=== PATIENT | male | born 1950 | race Caucasian/White ===

== ENCOUNTER 2017-03-18 02:39 | Inpatient (IN) | payer MEDICARE ==
[2017-03-18] VITALS (12 sets, daily range): BP systolic 95–147; BP diastolic 64–80; PULSE 67–119; RESP 15–18; TEMP 96.1–100.6; O2SAT 93–100
[~2017-03-18] VITALS: Ht 172.7 cm; Wt 58.5 kg
[~2017-03-18 02:39] MED LIST: ALBU8I INH; ASPI81TA82 PO; ATOR20TA42 PO; CYCL-36 PO; FIORIC PO; HYDR50TA94 PO; OMEP40CA2 PO; PLAV75TA PO; QUET200 PO; ROBA750T3 PO; TOPI100 PO; TRAZ150T75 PO
[2017-03-18] MEDS ORDERED: IOHEXOL 350 MG/ML 10 ML VIAL (for RAD DIAG) IVCONTRAST ONE (02:40)
[2017-03-18] MEDS ORDERED: PANT40TA3 PO (03:07)
[2017-03-18] MEDS ORDERED: SERO25TA PO (03:07)
[2017-03-18] MEDS ORDERED: PEG-SOL4 PO (03:07)
[2017-03-18] MEDS ORDERED: ASPI81CH CHEW (03:07)
[2017-03-18] MEDS ORDERED: LOSA50TA PO (03:07)
[2017-03-18] MEDS ORDERED: SERO400T PO (03:07)
[2017-03-18] MEDS ORDERED: TOPI200T7 PO (03:07)
[2017-03-18] MEDS ORDERED: ATOR20TA15 PO (03:07)
[2017-03-18] MEDS ORDERED: CLOP75TA PO (03:07)
[2017-03-18] MEDS ORDERED: TIZA2CAP3 PO (03:07)
[2017-03-18] MEDS ORDERED: TRAZ1TAB45 PO (03:07)
--- NOTE | 2017-03-18 03:13 | PD ---
HPI Chief Complaint: Respiratory Symptoms Time Seen by Provider: 02:48 Travel History International Travel<30 days: No Contact w/Intl Traveler<30days: No Traveled to known affect area: No History of Present Illness HPI The patient is a 66-year-old male that complains of shortness of breath for 2 days. He occasionally spits up some blood. He denies any fever. He has had a cough, particularly when he lies down an acute bleed secretions. He does not smoke. 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 He is currently disabled for stress and anxiety. His last chest x- ray was in 2014. He is a [facility] patient of Dr. Alexander Turner. He does have some sharp, right lateral chest pain at the base of his chest. The patient is on clopidogrel to prevent strokes. 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 The patient states that for the last 2 days he has been stuck on the couch, too weak and in too much pain with these right lung pain to move around. He states he lives alone. He wants to be admitted. PFSH Past Medical History Hx Anticoagulant Therapy: Yes (PLAVIX AND ASA) Asthma: Yes Anxiety: Yes Depression: Yes Heart Rhythm Problems: No Cancer: No Cardiac Catheterization: No High Cholesterol: Yes Chest Pain: Yes Congestive Heart Failure: No COPD: No Diabetes: No Diminished Hearing: Yes Endocrine: No Gastrointestinal Disorders: Yes Genitourinary: No Hiatal Hernia: Yes Hypertension: Yes Immune Disorder: No Musculoskeletal: Yes (CARPAL TUNNEL) Neurologic: Yes Psychiatric: Yes Reproductive: No Respiratory: Yes (ASTHMA) Immunizations Current: Yes Myocardial Infarction: Yes Sleep Apnea: No Tetanus Vaccination: Unknown Past Surgical History Abdominal Surgery: No Cardiac Surgery: Yes (3 STENTS in heart) Coronary Artery Bypass Graft: No Hysterectomy: Yes Tonsillectomy: Yes Other Surgery: Yes (ESOPHAGEAL SX) Family History Family Myocardial Infarction: Yes (FATHER 62 , 1ST HEART ATTACK WAS AT 47) Social History Alcohol Use: No Tobacco Use: No Substance Use: No Allergies-Medications (Allergen,Severity, Reaction): Coded Allergies: penicillin G (Unverified Allergy, Severe, Rash, 03/18/17) Reported Meds & Prescriptions Reported Meds & Active Scripts Active Reported Trazodone (Trazodone HCl) 150 Mg Tablet 150 Mg PO HS Topiramate 200 Mg Tab 200 Mg PO HS Tizanidine (Tizanidine HCl) 2 Mg Cap 2 Mg PO BID Seroquel (Quetiapine Fumarate) 25 Mg Tab 25 Mg PO TID Seroquel (Quetiapine Fumarate) 400 Mg Tab 400 Mg PO HS Peg-Electrolytes 4,000 Ml Soln 4,000 Ml PO ONCE Pantoprazole (Pantoprazole Sodium) 40 Mg Tab 40 Mg PO DAILY Losartan (Losartan Potassium) 50 Mg Tab 50 Mg PO DAILY Clopidogrel (Clopidogrel Bisulfate) 75 Mg Tab 75 Mg PO DAILY Atorvastatin (Atorvastatin Calcium) 20 Mg Tab 20 Mg PO HS Aspirin 81 Mg Chew 81 Mg CHEW DAILY Review of Systems Except as stated in HPI: all other systems reviewed are Neg Physical Exam Narrative GENERAL: The patient is alert, oriented 3 in no respiratory distress. SKIN: Focused skin assessment warm/dry. HEAD: Atraumatic. Normocephalic. EYES: Pupils equal and round. No scleral icterus. No injection or drainage. ENT: No nasal bleeding or discharge. Mucous membranes pink and moist. NECK: Trachea midline. No JVD. CARDIOVASCULAR: Regular rate and rhythm. No murmur appreciated. RESPIRATORY: No accessory muscle use. Right basilar rhonchi heard. Breath sounds equal bilaterally. GASTROINTESTINAL: Abdomen soft, non-tender, nondistended. Hepatic and splenic margins not palpable. MUSCULOSKELETAL: No obvious deformities. No clubbing. No cyanosis. No edema. NEUROLOGICAL: Awake and alert. No obvious cranial nerve deficits. Motor grossly within normal limits. Normal speech. PSYCHIATRIC: Appropriate mood and affect; insight and judgment normal. Data Data Last Documented VS Vital Signs Date Time Temp Pulse Resp B/P (MAP) Pulse Ox O2 Delivery O2 Flow Rate FiO2 03/18/17 03:49 98.9 03/18/17 03:48 109 18 95 Room Air Orders Orders Electrocardiogram (03/18/17 03:01) Complete Blood Count With Diff (03/18/17 03:01) Comprehensive Metabolic Panel (03/18/17 03:01) Urinalysis - C+S If Indicated (03/18/17 03:01) Blood Culture (03/18/17 03:01) Chest, Pa & Lat (03/18/17 03:01) Sodium Chloride 0.9% Flush (Ns Flush) (03/18/17 03:15) Troponin I (03/18/17 03:10) Ct Thorax/ Chest W Iv Contrast (03/18/17 ) Iohexol 350 Inj (Omnipaque 350 Inj) (03/18/17 02:40) Hydromorphone Pf Inj (Dilaudid Pf Inj) (03/18/17 05:45) Ondansetron Inj (Zofran Inj) (03/18/17 05:45) Labs Laboratory Tests Test 03/18/17 03:10 White Blood Count 10.8 TH/MM3 Red Blood Count 3.77 MIL/MM3 Hemoglobin 11.2 GM/DL Hematocrit 33.9 % Mean Corpuscular Volume 89.9 FL Mean Corpuscular Hemoglobin 29.7 PG Mean Corpuscular Hemoglobin Concent 33.0 % Red Cell Distribution Width 13.3 % Platelet Count 412 TH/MM3 Mean Platelet Volume 7.8 FL Neutrophils (%) (Auto) 82.6 % Lymphocytes (%) (Auto) 7.3 % Monocytes (%) (Auto) 8.7 % Eosinophils (%) (Auto) 1.1 % Basophils (%) (Auto) 0.3 % Neutrophils # (Auto) 9.0 TH/MM3 Lymphocytes # (Auto) 0.8 TH/MM3 Monocytes # (Auto) 0.9 TH/MM3 Eosinophils # (Auto) 0.1 TH/MM3 Basophils # (Auto) 0.0 TH/MM3 CBC Comment DIFF FINAL Differential Comment Blood Urea Nitrogen 10 MG/DL Creatinine 1.10 MG/DL Random Glucose 133 MG/DL Total Protein 7.8 GM/DL Albumin 2.6 GM/DL Calcium Level 9.2 MG/DL Alkaline Phosphatase 129 U/L Aspartate Amino Transf (AST/SGOT) 48 U/L Alanine Aminotransferase (ALT/SGPT) 44 U/L Total Bilirubin 0.6 MG/DL Sodium Level 136 MEQ/L Potassium Level 3.3 MEQ/L Chloride Level 105 MEQ/L Carbon Dioxide Level 17.5 MEQ/L Anion Gap 14 MEQ/L Estimat Glomerular Filtration Rate 67 ML/MIN Troponin I LESS THAN 0.02 NG/ML MDM Medical Decision Making Medical Screen Exam Complete: Yes Emergency Medical Condition: Yes Medical Record Reviewed: Yes Interpretation(s) The chest x-ray shows multiple right sided nodular densities concerning for metastatic deposits. It also shows consolidation in the right middle lobe. This may be due to some central adenopathy and regional airway compression. The left lung is clear. The CBC shows a mild anemia with a hemoglobin of 11.2 and hematocrit of 33.9. 83% neutrophils are present. The complete metabolic profile shows a potassium of 3.3, bicarbonate of 17.5, GFR of 67 with glucose 133 and AST of 48 with alkaline phosphatase 129 and albumen 2.6. The troponin I is normal. Differential Diagnosis Pneumonia, bronchitis, pulmonary embolusunlikely, lung tumor Narrative Course The patient has multiple lung masses with hemoptysis. The patient is on both aspirin and Plavix and may start bleeding from his lungs and any time. The patient also lives alone and has severe pain and weakness. He states he cannot get around. His oximetry is only 93% and he does have a tachycardia of 117. This would be a risky patient to send home. I discussed the patient with Dr. Baldwin and she agreed to admit the patient here at [facility]. It is likely that he will be transferred to [facility] in the next few days because of his condition. Dr. Neal Goode will likely reevaluate the patient in the next few hours after the CT scan of the thorax with contrast results are back. Physician Communication Physician Communication I discussed the patient with Dr. Neal Goode. The patient will be admitted to her here at [facility]. Admitting Information Admitting Physician Requests: Primitivo Bob MD Mar 18, 2017 03:12
[2017-03-18] MEDS ORDERED: SODIUM CHLORIDE 0.9% FLUSH 10 ML FLUSH IVF PRN (03:15)
[2017-03-18 03:18] LABS: BASOPHIL % 0.3 % (0.0-2.0); EOSINOPHIL # 0.1 TH/MM3 (0-0.4); EOSINOPHIL % 1.1 % (0.0-4.0); HEMATOCRIT 33.9 % (39.0-51.0); LYMPH % 7.3 % (9.0-44.0); LYMPHOCYTE # 0.8 TH/MM3 (1.0-4.8); MEAN CELL VOLUME 89.9 FL (80.0-100.0); MEAN CORPUSCULAR HEMOGLOBIN 29.7 PG (27.0-34.0); MONO % 8.7 % (0.0-8.0); NEUT % 82.6 % (16.0-70.0); PLATELET COUNT 412 TH/MM3 (150-450); RED BLOOD COUNT 3.77 MIL/MM3 (4.50-5.90); RED CELL DISTRIBUTION WIDTH 13.3 % (11.6-17.2); WHITE BLOOD COUNT 10.8 TH/MM3 (4.0-11.0)
[2017-03-18 03:19] LABS: HEMO FLAGS DIFF FINAL
[2017-03-18 03:25] LABS: CHLORIDE 105 MEQ/L (98-107); POTASSIUM 3.3 MEQ/L (3.5-5.1); SODIUM (NA) 136 MEQ/L (136-145)
[2017-03-18 03:28] LABS: ANION GAP 14 MEQ/L (5-15); BICARBONATE 17.5 MEQ/L (21.0-32.0)
[2017-03-18 03:29] LABS: BLOOD UREA NITROGEN 10 MG/DL (7-18)
[2017-03-18 03:31] LABS: ALT (GPT) 44 U/L (12-78); AST (GOT) 48 U/L (15-37)
[2017-03-18 03:32] LABS: GLOMERULAR FILTRATION RATE 67 ML/MIN (>89)
[2017-03-18 03:33] LABS: TOTAL BILIRUBIN ADULT 0.6 MG/DL (0.2-1.0)
[2017-03-18 03:34] LABS: ALKALINE PHOSPHATASE 129 U/L (45-117)
--- NOTE | 2017-03-18 04:19 | RADRPT ---
EXAM DATE/TIME: 03/18/2017 03:23 [facility] COMPARISON: CHEST SINGLE AP, May 12, 2015, 15:38. INDICATIONS : Shortness of breath. MEDICAL HISTORY : Hypertension. SURGICAL HISTORY : Coronary artery stent. Esophagus surgery ENCOUNTER: Initial ACUITY: 2 days PAIN SCORE: 4/10 LOCATION: Bilateral chest FINDINGS: PA and lateral views of the chest demonstrate multiple nodular densities in the right hemithorax, the largest in the right base measuring 6 cm in diameter. Consolidative infiltrate in the medial segment of the right middle lobe. Left lung is clear. Heart size is normal. Osseous structures are intact. CONCLUSION: 1. Multiple right-sided nodular density concerning for metastatic deposits. 2. Consolidation in the right middle. This may be due to some central adenopathy and regional airway compression. 3. Left lung is clear Sky Gomes MD on March 18, 2017 at 4:15 Board Certified Radiologist. This report was verified electronically.
[2017-03-18] MEDS ORDERED: HYDROmorphone HCL PF 1 MG/ML VIAL IVP ONE (05:45)
[2017-03-18] MEDS ORDERED: ONDANSETRON HCL 4 MG/2 ML VIAL IV ONE (05:45)
--- NOTE | 2017-03-18 05:47 | RADRPT ---
EXAM DATE/TIME: 03/18/2017 05:18 [facility] COMPARISON: No previous studies available for comparison. INDICATIONS : Abnormal CXR. Hemoptysis. Shortness of breath. IV CONTRAST: 71 cc Omnipaque 350 (iohexol) IV RADIATION DOSE: 6.65 CTDIvol (mGy) MEDICAL HISTORY : Hernia, hiatal. Asthma SURGICAL HISTORY : Tonsillectomy. Coronary artery stent.esophageal surgery ENCOUNTER: Initial ACUITY: 2 days PAIN SCALE: 0/10 LOCATION: Right chest TECHNIQUE: Volumetric scanning of the chest was performed. Using automated exposure control and adjustment of t he mA and/or kV according to patient size, radiation dose was kept as low as reasonably achievable to obtain optimal diagnostic quality images. DICOM format image data is available electronically for review and comparison. Follow-up recommendations for detected pulmonary nodules are based at a minimum on nodule size and pa tient risk factors according to Fleischner Society Guidelines. FINDINGS: LUNGS: Multiple right-sided mass lesions the largest in the right base measuring approximately 5.8 cm in jm meter. Some of these lesions do show central cavitation. Minimal atelectasis or scarring the left sandy g base. More extensive atelectatic changes medially in the right middle lobe. PLEURA: There is no pleural thickening or pleural effusion. MEDIASTINUM: Borderline prominent subcarinal lymph nodes. Right hilar lida prominence as well. AXILLAE: Within normal limits. No lymphadenopathy. SKELETAL: Within normal limits for patient age. MISCELLANEOUS: The visualized upper abdominal organs demonstrate no acute abnormality. CONCLUSION: 1. Multiple cavitary mass lesions in the right hemithorax. Both neoplastic and infectious etiology sh ould be considered. 2. Right hilar and subcarinal prominent lymph nodes. 3. Atelectatic changes in the right middle Sky Gomes MD on March 18, 2017 at 5:41 Board Certified Radiologist. This report was verified electronically.
[2017-03-18] MEDS ORDERED: ACETAMINOPHEN 325 MG TAB PO PRN (08:30)
[2017-03-18] MEDS ORDERED: NALOXONE HCL 0.4 MG/ML AMP IV PUSH PRN (08:30)
[2017-03-18] MEDS ORDERED: ONDANSETRON HCL 4 MG/2 ML VIAL IVP PRN (08:30)
[2017-03-18] MEDS ORDERED: SODIUM CHLOR 0.9% 1000 ML INJ 1,000 ML IV SCH (08:30)
[2017-03-18 12:12] LABS: BLOOD, URINE NEG (NEG); GLUCOSE,URINE NEG (NEG); KETONE, URINE NEG (NEG); NITRITE,URINE NEG (NEG)
[2017-03-18 12:21] LABS: METHOD OF COLLECTION CLEAN CATCH; URINE COLOR YELLOW (YELLW/STRAW)
[2017-03-18 12:22] LABS: COMMENT (UR) CULT NOT INDICATED; CULTURE IF INDICATED CULT NOT INDICATED; WBC, URINE 0-2 /hpf (0-5)
--- NOTE | 2017-03-18 12:46 | EKG ---
Date Performed: 03/18/2017 Time Performed: 02:53:44 PTAGE: 66 years EKG: SINUS TACHYCARDIA NONSPECIFIC ST & T-WAVE ABNORMALITY ABNORMAL RHYTHM ECG NO PREVIOUS TRACING DOCTOR: Domenic Reed Interpretating Date/Time 03/18/2017 12:46:06
[2017-03-18] MEDS: NS + KCL 20 MEQ INJ 1,000 ML IV SCH (14:15)
[2017-03-18] MEDS ORDERED: Vancomycin Consult Pharmacy 1 EA OTHER SCH (14:45)
[2017-03-18] MEDS ORDERED: VANCOMYCIN INJ 1,000 MG in SODIUM CHLOR 0.9% 250 ML INJ 250 ML IV SCH (14:45)
[2017-03-18] MEDS: RESP: ALBUTEROL 2.5 MG/3 ML NEB (SCH) NEB ×2 (15:20→21:04)
[2017-03-18] MEDS ORDERED: PILL SPLITTER OTHER PRN (15:30)
[2017-03-18] MEDS ORDERED: LEVOFLOXACIN 750 MG PREMIX INJ 150 ML IV SCH (16:00)
[2017-03-18] MEDS ORDERED: LIDOCAINE VISCOUS 2% SOLN 15 ML UDC SWISH-SPIT PRN (16:30)
[2017-03-18] MEDS ORDERED: RESP: ALBUTEROL 2.5 MG/3 ML NEB (PRN) NEB (16:30)
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
[2017-03-18] MEDS: CLINDAMYCIN INJ 600 MG in SODIUM CHLORIDE 0.9% INJ 100 ML IV SCH (17:54)
[2017-03-18] MEDS ORDERED: QUEtiapine FUMARATE 25 MG TAB PO PRN (18:00)
[2017-03-18] MEDS ORDERED: QUEtiapine FUMARATE 25 MG TAB PO SCH (18:00)
[2017-03-18 18:22] LABS: AUTOMATED NEUTROPHIL # 11.5 TH/MM3 (1.8-7.7); BASOPHIL % 0.2 % (0.0-2.0); EOSINOPHIL # 0.1 TH/MM3 (0-0.4); EOSINOPHIL % 0.5 % (0.0-4.0); HEMATOCRIT 31.5 % (39.0-51.0); LYMPH % 1.7 % (9.0-44.0); LYMPHOCYTE # 0.2 TH/MM3 (1.0-4.8); MEAN CELL VOLUME 90.5 FL (80.0-100.0); MEAN CORPUSCULAR HEMOGLOBIN 29.7 PG (27.0-34.0); MEAN CORPUSCULAR HGB CONC 32.8 % (32.0-36.0); MONO % 7.9 % (0.0-8.0); NEUT % 89.7 % (16.0-70.0); PLATELET COUNT 375 TH/MM3 (150-450); RED BLOOD COUNT 3.49 MIL/MM3 (4.50-5.90); RED CELL DISTRIBUTION WIDTH 13.2 % (11.6-17.2); WHITE BLOOD COUNT 12.8 TH/MM3 (4.0-11.0)
[2017-03-18 18:25] LABS: HEMO FLAGS DIFF FINAL
[2017-03-18 18:30] LABS: POTASSIUM 3.3 MEQ/L (3.5-5.1)
[2017-03-18 18:33] LABS: BICARBONATE 18.1 MEQ/L (21.0-32.0)
[2017-03-18 18:35] LABS: APTT (PATIENT) 29.5 SEC (24.3-30.1); PROTHROMBIN TIME - PATIENT 11.5 SEC (9.8-11.6)
[2017-03-18] MEDS: QUEtiapine FUMARATE 100 MG TAB PO SCH (20:35)
[2017-03-18] MEDS: traZODone HCL 50 MG TAB PO SCH (20:35)
[2017-03-18] MEDS: TOPIRAMATE 100 MG TAB PO SCH (20:35)
[2017-03-18] MEDS: ATORVASTATIN 20 MG TAB PO SCH (20:35)
--- NOTE | 2017-03-18 21:46 | EKG ---
Date Performed: 03/18/2017 Time Performed: 17:55:42 PTAGE: 66 years EKG: Sinus rhythm NONSPECIFIC T-WAVE ABNORMALITY BORDERLINE ECG PREVIOUS TRACING : 03/18/2017 02.53 No significant change from previous tracing noted. DOCTOR: Domenic Reed Interpretating Date/Time 03/18/2017 21:44:38
[2017-03-19] MEDS: NS + KCL 20 MEQ INJ 1,000 ML IV SCH ×3 (00:16→17:15)
[2017-03-19] MEDS: CLINDAMYCIN INJ 600 MG in SODIUM CHLORIDE 0.9% INJ 100 ML IV SCH ×2 (00:16→05:48)
[2017-03-19 00:40] VITALS: BP 110/70; PULSE 83; RESP 18; TEMP 97; O2SAT 96
[2017-03-19] MEDS: RESP: ALBUTEROL 2.5 MG/3 ML NEB (SCH) NEB ×4 (03:31→22:19)
[2017-03-19] MEDS ORDERED: ACETAMINOPHEN/HYDROcodone 325 MG/5 MG TAB PO ONE (04:30)
[2017-03-19 06:59] LABS: AUTOMATED NEUTROPHIL # 10.8 TH/MM3 (1.8-7.7); BASOPHIL % 0.2 % (0.0-2.0); EOSINOPHIL # 0.1 TH/MM3 (0-0.4); EOSINOPHIL % 0.7 % (0.0-4.0); HEMATOCRIT 29.4 % (39.0-51.0); LYMPH % 2.8 % (9.0-44.0); LYMPHOCYTE # 0.3 TH/MM3 (1.0-4.8); MEAN CELL VOLUME 90.4 FL (80.0-100.0); MEAN CORPUSCULAR HEMOGLOBIN 29.7 PG (27.0-34.0); MEAN CORPUSCULAR HGB CONC 32.8 % (32.0-36.0); MONO % 10.5 % (0.0-8.0); NEUT % 85.8 % (16.0-70.0); PLATELET COUNT 352 TH/MM3 (150-450); RED BLOOD COUNT 3.26 MIL/MM3 (4.50-5.90); RED CELL DISTRIBUTION WIDTH 13.2 % (11.6-17.2); WHITE BLOOD COUNT 12.5 TH/MM3 (4.0-11.0)
[2017-03-19 07:06] LABS: HEMO FLAGS DIFF FINAL
[2017-03-19 07:07] LABS: CHLORIDE 110 MEQ/L (98-107); POTASSIUM 3.7 MEQ/L (3.5-5.1); SODIUM (NA) 140 MEQ/L (136-145)
[2017-03-19 07:11] LABS: ANION GAP 10 MEQ/L (5-15); BICARBONATE 19.6 MEQ/L (21.0-32.0)
[2017-03-19 07:14] LABS: ALT (GPT) 36 U/L (12-78); BLOOD UREA NITROGEN 10 MG/DL (7-18)
[2017-03-19 07:15] LABS: AST (GOT) 38 U/L (15-37); GLOMERULAR FILTRATION RATE 67 ML/MIN (>89)
[2017-03-19 07:16] LABS: TOTAL BILIRUBIN ADULT 0.5 MG/DL (0.2-1.0)
[2017-03-19 07:17] LABS: ALKALINE PHOSPHATASE 121 U/L (45-117)
[2017-03-19 08:00] VITALS: BP 109/72; PULSE 89; RESP 20; TEMP 98.7; O2SAT 96
[2017-03-19] MEDS: PANTOPRAZOLE SOD 40 MG DELAYED RELEASE TAB PO SCH (08:57)
[2017-03-19 09:12] VITALS: O2SAT 94
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
[2017-03-19] MEDS ORDERED: Vancomycin Consult Pharmacy 1 EA OTHER SCH (12:00)
--- NOTE | 2017-03-19 12:12 | HHI.PR ---
Subjective Remarks some hemoptysis last night, some gassiness in lower abdomen, no bm since admission mouth very dry, sore Objective Vitals Vital Signs Date Time Temp Pulse Resp B/P (MAP) Pulse Ox O2 Delivery O2 Flow Rate FiO2 03/19/17 10:36 Nasal Cannula 2.00 03/19/17 09:12 94 Nasal Cannula 2.00 03/19/17 08:00 98.7 89 20 109/72 (84) 96 03/19/17 04:24 03/19/17 00:40 97.0 83 18 110/70 (83) 96 03/18/17 21:22 96.9 86 16 95/64 (74) 95 03/18/17 21:06 96 Nasal Cannula 2.00 03/18/17 20:00 95 Nasal Cannula 2.00 03/18/17 17:17 100.6 103 18 147/79 (101) 95 03/18/17 13:00 96.1 67 15 139/80 (99) 100 Result Diagram: 03/19/17 0537 03/19/17 0537 Imaging Last Impressions Chest X-Ray 03/18/17 0301 Signed Impressions: Service Date/Time: Saturday, March 18, 2017 03:23 - CONCLUSION: 1. Multiple right-sided nodular density concerning for metastatic deposits. 2. Consolidation in the right middle. This may be due to some central adenopathy and regional airway compression. 3. Left lung is clear Sky Gomes MD Chest CT 03/18/17 0000 Signed Impressions: Service Date/Time: Saturday, March 18, 2017 05:18 - CONCLUSION: 1. Multiple cavitary mass lesions in the right hemithorax. Both neoplastic and infectious etiology should be considered. 2. Right hilar and subcarinal prominent lymph nodes. 3. Atelectatic changes in the right middle Sky Gomes MD Objective Remarks Lying in bed on oxygen mouth very dry, no lesions or ulcer fine crackles rt base rrr no murmur +bs nontender A/P Problem List: (1) Cavitary lesion of lung ICD Codes: J98.4 - Other disorders of lung Status: Acute Plan: Seen by ID, antibiotics adjusted, await cultures, agree with echo (2) Anxiety and depression ICD Codes: F41.8 - Anxiety and depression Status: Chronic Plan: cont medications,stable (3) Hyperlipidemia ICD Codes: E78.5 - Hyperlipidemia Status: Chronic Plan: cont atorvastatin (4) Migraine ICD Codes: G43.909 - Migraine, unspecified, not intractable, without status migrainosus Status: Chronic Plan: stable cont topamax (5) CAD (coronary artery disease) ICD Codes: I25.10 - CAD (coronary artery disease) Status: Chronic Plan: confirmed in [facility] EHR he was on plavix and aspirin, on hold due to hemoptysis Assessment and Plan Antibiotica adjusted, for echo and bronchoscopy today Problem Qualifiers (1) Migraine: (2) CAD (coronary artery disease): Leslie Baldwin MD Mar 19, 2017 11:57
[2017-03-19] MEDS: diphenhydrAMINE HCL 50 MG/ML VIAL IV PUSH SCH ×3 (13:56→22:53)
[2017-03-19] MEDS: cefTRIAXone INJ 2,000 MG in SODIUM CHLORIDE 0.9% INJ 100 ML IV SCH (13:57)
[2017-03-19] MEDS: VANCOMYCIN INJ 1,100 MG in SODIUM CHLOR 0.9% 250 ML INJ 250 ML IV SCH (14:54)
[2017-03-19] MEDS: metroNIDAZOLE 500 MG TAB PO SCH ×2 (17:14→22:51)
--- NOTE | 2017-03-19 19:58 | HHI.PR ---
Subjective Remarks YOWM with Bipolar disorder, multiple cavitary lesions denies sob No fever Feels weak Tr to [facility] [place] main for bronch Objective Vital Signs Vital Signs Date Time Temp Pulse Resp B/P (MAP) Pulse Ox O2 Delivery O2 Flow Rate FiO2 03/19/17 19:16 Nasal Cannula 03/19/17 10:36 Nasal Cannula 2.00 03/19/17 09:12 94 Nasal Cannula 2.00 03/19/17 08:00 98.7 89 20 109/72 (84) 96 03/19/17 04:24 03/19/17 00:40 97.0 83 18 110/70 (83) 96 03/18/17 21:22 96.9 86 16 95/64 (74) 95 03/18/17 21:06 96 Nasal Cannula 2.00 03/18/17 20:00 95 Nasal Cannula 2.00 I/O 03/18/17 03/18/17 03/18/17 03/19/17 03/19/17 03/19/17 06:59 14:59 22:59 06:59 14:59 22:59 Intake Total 627 ml 1100 ml Output Total 800 ml Balance 627 ml 300 ml Intake IV Total 627 ml 1100 ml Output Urine Total 800 ml # Voids 2 # Bowel Movements 0 Result Diagram: 03/19/17 0537 03/19/17 0537 Objective Remarks GENERAL: MBMN WM, weak, NAD SKIN: Warm and dry. HEAD: Normocephalic. EYES: No scleral icterus. No injection or drainage. NECK: Supple, trachea midline. No JVD or lymphadenopathy. CARDIOVASCULAR: Regular rate and rhythm without murmurs, gallops, or rubs. RESPIRATORY: Breath sounds equal bilaterally. No accessory muscle use. GASTROINTESTINAL: Abdomen soft, non-tender, nondistended. MUSCULOSKELETAL: No cyanosis, or edema. BACK: Nontender without obvious deformity. No CVA tenderness. A/P Assessment and Plan Multiple cavitary lesions right lung Bipolar disorder Weight loss PLAN Cont Abx per ID Sputum for AFB Bronch tommorrow DW Pt Bunny Rehman MD Mar 19, 2017 19:58
[2017-03-19 20:00] VITALS: BP 160/77; PULSE 99; RESP 20; TEMP 97.6; O2SAT 97
[2017-03-19 20:38] LABS: AUTOMATED NEUTROPHIL # 14.1 TH/MM3 (1.8-7.7); BASOPHIL % 0.3 % (0.0-2.0); EOSINOPHIL # 0.1 TH/MM3 (0-0.4); EOSINOPHIL % 0.5 % (0.0-4.0); HEMO FLAGS DIFF FINAL; LYMPH % 2.9 % (9.0-44.0); LYMPHOCYTE # 0.5 TH/MM3 (1.0-4.8); MEAN CELL VOLUME 92.8 FL (80.0-100.0); MEAN CORPUSCULAR HEMOGLOBIN 29.9 PG (27.0-34.0); MEAN CORPUSCULAR HGB CONC 32.2 % (32.0-36.0); MONO % 9.2 % (0.0-8.0); NEUT % 87.1 % (16.0-70.0); PLATELET COUNT 396 TH/MM3 (150-450); RED BLOOD COUNT 3.88 MIL/MM3 (4.50-5.90); RED CELL DISTRIBUTION WIDTH 14.1 % (11.6-17.2); WHITE BLOOD COUNT 16.1 TH/MM3 (4.0-11.0)
[2017-03-19 20:48] LABS: INTERNATIONAL NORMALIZED RATIO 1.1 RATIO; PROTHROMBIN TIME - PATIENT 12.2 SEC (9.8-11.6)
[2017-03-19 20:56] LABS: BICARBONATE 19.1 MEQ/L (21.0-32.0); POTASSIUM 3.6 MEQ/L (3.5-5.1)
[2017-03-19 22:20] VITALS: O2SAT 96
[2017-03-19] MEDS: ATORVASTATIN 20 MG TAB PO SCH (22:52)
[2017-03-19] MEDS: QUEtiapine FUMARATE 100 MG TAB PO SCH (22:52)
[2017-03-19] MEDS: traZODone HCL 50 MG TAB PO SCH (22:52)
[2017-03-19] MEDS: TOPIRAMATE 100 MG TAB PO SCH (22:52)
[2017-03-20] VITALS: BP 92/56; PULSE 93; RESP 18; TEMP 99.1; O2SAT 96
[2017-03-20] MEDS: RESP: ALBUTEROL 2.5 MG/3 ML NEB (SCH) NEB ×4 (03:43→22:00)
[2017-03-20 04:00] VITALS: BP 109/63; PULSE 98; RESP 20; TEMP 98.3; O2SAT 95
[2017-03-20] MEDS: metroNIDAZOLE 500 MG TAB PO SCH ×3 (06:09→22:37)
[2017-03-20] MEDS: diphenhydrAMINE HCL 50 MG/ML VIAL IV PUSH SCH ×3 (06:09→18:00)
[2017-03-20 08:00] VITALS: BP 109/56; PULSE 88; RESP 17; TEMP 98.3; O2SAT 96
[2017-03-20] MEDS: PANTOPRAZOLE SOD 40 MG DELAYED RELEASE TAB PO SCH (09:00)
[2017-03-20 09:46] LABS: BASOPHIL % 0.4 % (0.0-2.0); EOSINOPHIL # 0.1 TH/MM3 (0-0.4); HEMATOCRIT 28.9 % (39.0-51.0); HEMO FLAGS DIFF FINAL; LYMPH % 2.4 % (9.0-44.0); LYMPHOCYTE # 0.3 TH/MM3 (1.0-4.8); MEAN CELL VOLUME 91.3 FL (80.0-100.0); MEAN CORPUSCULAR HEMOGLOBIN 30.4 PG (27.0-34.0); MEAN CORPUSCULAR HGB CONC 33.3 % (32.0-36.0); MONO % 10.8 % (0.0-8.0); NEUT % 85.4 % (16.0-70.0); PLATELET COUNT 304 TH/MM3 (150-450); RED BLOOD COUNT 3.16 MIL/MM3 (4.50-5.90); RED CELL DISTRIBUTION WIDTH 14.2 % (11.6-17.2); WHITE BLOOD COUNT 11.7 TH/MM3 (4.0-11.0)
--- NOTE | 2017-03-20 09:51 | HHI.PR ---
Subjective Remarks still sob/coughed up some blood tinged sputum. Objective Vitals heart reg lung good air entry abd s/nt ext no edema. no splinter hemorrhage Vital Signs Date Time Temp Pulse Resp B/P (MAP) Pulse Ox O2 Delivery O2 Flow Rate FiO2 03/20/17 08:00 98.3 88 17 109/56 (73) 96 03/20/17 04:00 98.3 98 20 109/63 (78) 95 03/20/17 00:00 99.1 93 18 92/56 (68) 96 03/19/17 22:20 96 Nasal Cannula 2.50 03/19/17 20:19 Nasal Cannula 2.00 03/19/17 20:00 97.6 99 20 160/77 (104) 97 03/19/17 19:16 Nasal Cannula 03/19/17 10:36 Nasal Cannula 2.00 Result Diagram: 03/19/17201903/19/172019 Imaging Last Impressions Chest X-Ray 03/18/17 0301 Signed Impressions: Service Date/Time: Saturday, March 18, 2017 03:23 - CONCLUSION: 1. Multiple right-sided nodular density concerning for metastatic deposits. 2. Consolidation in the right middle. This may be due to some central adenopathy and regional airway compression. 3. Left lung is clear Sky Gomes MD Chest CT 03/18/17 0000 Signed Impressions: Service Date/Time: Saturday, March 18, 2017 05:18 - CONCLUSION: 1. Multiple cavitary mass lesions in the right hemithorax. Both neoplastic and infectious etiology should be considered. 2. Right hilar and subcarinal prominent lymph nodes. 3. Atelectatic changes in the right middle Sky Gomes MD A/P Problem List: (1) Cavitary lesion of lung ICD Codes: J98.4 - Other disorders of lung Status: Acute Plan: Pt with multiple cavitary mass lesions of the right lung concern for infectious etiology. r/o malignancy recent dental work. r/o endocarditis and septic emboli no clear aspiration event per history. TB and fungal etiologies being considered. No known immunosuppression echo pending f/u blood cx sent blood tinged sputum for afb/gs cx/fungal bronchoscopy today pt isolated. cont abx per ID (2) Anxiety and depression ICD Codes: F41.8 - Anxiety and depression Status: Chronic Plan: cont medications,stable (3) Hyperlipidemia ICD Codes: E78.5 - Hyperlipidemia Status: Chronic Plan: cont atorvastatin (4) Migraine ICD Codes: G43.909 - Migraine, unspecified, not intractable, without status migrainosus Status: Chronic Plan: stable cont topamax (5) CAD (coronary artery disease) ICD Codes: I25.10 - CAD (coronary artery disease) Status: Chronic Plan: confirmed in [facility] EHR he was on plavix and aspirin, on hold due to hemoptysis Problem Qualifiers (1) Migraine: (2) CAD (coronary artery disease): Jeffrey Clayton MD Mar 20, 2017 09:51
[2017-03-20 10:16] LABS: ALKALINE PHOSPHATASE 117 U/L (45-117); ALT (GPT) 35 U/L (12-78); ANION GAP 11 MEQ/L (5-15); AST (GOT) 37 U/L (15-37); BICARBONATE 19.3 MEQ/L (21.0-32.0); BLOOD UREA NITROGEN 10 MG/DL (7-18); CHLORIDE 108 MEQ/L (98-107); GLOMERULAR FILTRATION RATE 75 ML/MIN (>89); POTASSIUM 3.6 MEQ/L (3.5-5.1); SODIUM (NA) 138 MEQ/L (136-145); TOTAL BILIRUBIN ADULT 0.5 MG/DL (0.2-1.0)
[2017-03-20] MEDS: VANCOMYCIN INJ 1,100 MG in SODIUM CHLOR 0.9% 250 ML INJ 250 ML IV SCH (10:53)
[2017-03-20 12:00] VITALS: BP 116/69; PULSE 89; RESP 17; TEMP 98.5; O2SAT 98
[2017-03-20] MEDS ORDERED: LIDOCAINE HCL 1% PF 5 ML AMPULE OTHER ONE (12:00)
[2017-03-20] MEDS ORDERED: PROPOFOL 200 MG/20 ML AMP IV ONE (12:00)
[2017-03-20] MEDS: cefTRIAXone INJ 2,000 MG in SODIUM CHLORIDE 0.9% INJ 100 ML IV SCH (13:48)
--- NOTE | 2017-03-20 14:31 | PD.CONS ---
HPI History of Present Illness This is a 66 year old who is currently hospitalized for evaluation and treatment of multiple cavitary mass lesions of the right lung with concern for infectious vs. malignant etiology. Yesterday, he was transferred to [facility] from the [facility] for a bronchoscopy by pulmonary. GI has been consulted for dysphagia. Apparently, he underwent major hiatal hernia repair as a child and has since required several EGD with dilatations. He was last seen by our office in 2016 and evaluated with EGD/Colonoscopy (09/03/15)----> reflux esophagitis in the distal esophagus, biopsy was performed, wide mouthed diverticulum in the distal esophagus, retroflexed views revealed a medium hiatal hernia. Pedunculated polyp was found in the sigmoid colon; polypectomy was performed using snare cautery, retroflexed views revealed Grade II hemorrhoids, rectal exam revealed medium external hemorrhoids. Stomach antrum bx- fragment of squamous mucosa with basal cell hyperplasia, elongation of papillae and intra epithelial lymphocytes and rare eosinophils (~2/HPF), no gastric mucosa seen (comments- may represent reflux esophagitis if sample is from the esophagus), distal esophagus with squamous epithelium with mild chronic esophagitis, no columnar cells/glandular mucosa seen, sigmoid colon polyp tubular adenoma. GI was consulted for dysphagia. The initially denied this and insisted that he does not have any swallowing issues. However, after speaking to him more, he states that he has had issues since he had his surgery in 196. He states that since his surgery, the food gets caught in his lower esophagus. He has learned to control this by chewing his food well, taking small bites, taking frequent sips of water, eating upright, and cutting off food after 6pm. He states by following these measures, he is able to eat and does okay. He insists that this is not a problem, but the way he is. He reports that he has had multiple endoscopies and dilatations in the past, but never has any improvement with this. He also has a history of GERD, but states this is well controlled with medication. He denies n/v. He sometimes coughs after eating, but again insists as long as he eats slow with small bites and frequent water, he does okay. Denies abdominal pain. He states that he was due for an endoscopy in August, but had dental issues and was not able to call for an appointment. (Lili Casas) PFSH Past Medical History Bipolar disorder Schizoaffective d/o Asthma Bloating Hx HH CAD Carpal tunnel syndrome Chronic back pain GERD Esophageal diverticulum Tubular adenoma of colon HTN Hyperlipidemia Neuropathy Panic disorder Psoriasis Hx thrombocytopenia Past Surgical History Cardiac catheterization Dental surgery Esophagogastric fundoplasty judy fundoplication EGD/Colonoscopy (Lili Casas) Coded Allergies: penicillin G (Unverified Allergy, Severe, Rash, 03/20/17) Tolerates Cephalosporins Medications Allergies Coded Allergies Type Severity Reaction Last Updated Verified penicillin G Allergy Severe Rash 03/18/17 No Active Scripts Medications Dose Route/Sig Max Daily Dose Days Date Category Trazodone (Trazodone HCl) 150 Mg Tablet 150 Mg PO HS 03/18/17 Reported Topiramate 200 Mg Tab 200 Mg PO HS 03/18/17 Reported Seroquel (Quetiapine Fumarate) 25 Mg Tab 25 Mg PO TID 03/18/17 Reported Pantoprazole (Pantoprazole Sodium) 40 Mg Tab 40 Mg PO DAILY 03/18/17 Reported Losartan (Losartan Potassium) 50 Mg Tab 50 Mg PO DAILY 03/18/17 Reported Clopidogrel (Clopidogrel Bisulfate) 75 Mg Tab 75 Mg PO DAILY 03/18/17 Reported Atorvastatin (Atorvastatin Calcium) 20 Mg Tab 20 Mg PO HS 03/18/17 Reported Aspirin 81 Mg Chew 81 Mg CHEW DAILY 03/18/17 Reported Family History Father had colon cancer. Social History No tobacco use No ETOH abuse (Lili Casas) Review of Systems Constitutional: COMPLAINS OF: Fatigue, DENIES: Fever, Chills Respiratory: COMPLAINS OF: Cough, Shortness of breath Cardiovascular: DENIES: Chest pain Gastrointestinal: COMPLAINS OF: Difficulty Swallowing, Heartburn, DENIES: Abdominal pain, Black stools, Bloody stools, Constipation, Diarrhea, Nausea, Vomiting, Odynophagia Integumentary: DENIES: Abnormal pigmentation Hematologic/lymphatic: DENIES: Bruising Neurologic: DENIES: Headache Psychiatric: DENIES: Confusion (Lili Casas) GI Exam Vitals I&O Vital Signs Date Time Temp Pulse Resp B/P (MAP) Pulse Ox O2 Delivery O2 Flow Rate FiO2 03/20/17 08:00 98.3 88 17 109/56 (73) 96 03/20/17 04:00 98.3 98 20 109/63 (78) 95 03/20/17 00:00 99.1 93 18 92/56 (68) 96 03/19/17 22:20 96 Nasal Cannula 2.50 03/19/17 20:19 Nasal Cannula 2.00 03/19/17 20:00 97.6 99 20 160/77 (104) 97 03/19/17 19:16 Nasal Cannula I/O 03/19/17 03/19/17 03/19/17 03/20/17 03/20/17 03/20/17 07:00 15:00 23:00 07:00 15:00 23:00 Intake Total 1100 ml Output Total 800 ml Balance 300 ml Intake IV Total 1100 ml Output Urine Total 800 ml # Voids 2 # Bowel Movements 0 Imaging Last Impressions Chest X-Ray 03/18/17 0301 Signed Impressions: Service Date/Time: Saturday, March 18, 2017 03:23 - CONCLUSION: 1. Multiple right-sided nodular density concerning for metastatic deposits. 2. Consolidation in the right middle. This may be due to some central adenopathy and regional airway compression. 3. Left lung is clear Sky Gomes MD Chest CT 03/18/17 0000 Signed Impressions: Service Date/Time: Saturday, March 18, 2017 05:18 - CONCLUSION: 1. Multiple cavitary mass lesions in the right hemithorax. Both neoplastic and infectious etiology should be considered. 2. Right hilar and subcarinal prominent lymph nodes. 3. Atelectatic changes in the right middle Sky Gomes MD Laboratory Test 03/19/17 20:20 03/20/17 06:59 White Blood Count 16.1 TH/MM3 11.7 TH/MM3 Red Blood Count 3.88 MIL/MM3 3.16 MIL/MM3 Hemoglobin 11.6 GM/DL 9.6 GM/DL Hematocrit 36.0 % 28.9 % Mean Corpuscular Volume 92.8 FL 91.3 FL Mean Corpuscular Hemoglobin 29.9 PG 30.4 PG Mean Corpuscular Hemoglobin Concent 32.2 % 33.3 % Red Cell Distribution Width 14.1 % 14.2 % Platelet Count 396 TH/MM3 304 TH/MM3 Mean Platelet Volume 8.4 FL 8.9 FL Neutrophils (%) (Auto) 87.1 % 85.4 % Lymphocytes (%) (Auto) 2.9 % 2.4 % Monocytes (%) (Auto) 9.2 % 10.8 % Eosinophils (%) (Auto) 0.5 % 1.0 % Basophils (%) (Auto) 0.3 % 0.4 % Neutrophils # (Auto) 14.1 TH/MM3 10.0 TH/MM3 Lymphocytes # (Auto) 0.5 TH/MM3 0.3 TH/MM3 Monocytes # (Auto) 1.5 TH/MM3 1.3 TH/MM3 Eosinophils # (Auto) 0.1 TH/MM3 0.1 TH/MM3 Basophils # (Auto) 0.0 TH/MM3 0.0 TH/MM3 CBC Comment DIFF FINAL DIFF FINAL Differential Comment Prothrombin Time 12.2 SEC Prothromb Time International Ratio 1.1 RATIO Activated Partial Thromboplast Time 35.0 SEC Blood Urea Nitrogen 8 MG/DL 10 MG/DL Creatinine 1.21 MG/DL 1.00 MG/DL Random Glucose 103 MG/DL 96 MG/DL Calcium Level 9.6 MG/DL 8.7 MG/DL Sodium Level 137 MEQ/L 138 MEQ/L Potassium Level 3.6 MEQ/L 3.6 MEQ/L Chloride Level 108 MEQ/L 108 MEQ/L Carbon Dioxide Level 19.1 MEQ/L 19.3 MEQ/L Anion Gap 10 MEQ/L 11 MEQ/L Estimat Glomerular Filtration Rate 60 ML/MIN 75 ML/MIN Total Protein 6.6 GM/DL Albumin 2.1 GM/DL Alkaline Phosphatase 117 U/L Aspartate Amino Transf (AST/SGOT) 37 U/L Alanine Aminotransferase (ALT/SGPT) 35 U/L Total Bilirubin 0.5 MG/DL Date/Time Source Procedure Growth Status 03/18/17 15:01 Blood Peripheral Aerobic Blood Culture - Preliminary NO GROWTH IN 2 DAYS Resulted 03/18/17 15:01 Blood Peripheral Anaerobic Blood Culture - Preliminary NO GROWTH IN 2 DAYS Resulted 03/20/17 06:20 Sputum Expectorated Sputum Fungal Smear Pending Received 03/20/17 06:20 Sputum Expectorated Sputum Fungal Culture Pending Received Physical Examination HEENT: Normocephalic; atraumatic; no jaundice. CHEST: Resp even/unlabored. Diminished bases CARDIAC: RRR ABDOMEN: Soft, nondistended, nontender; no hepatosplenomegaly; bowel sounds are present in all four quadrants. EXTREMITIES: No clubbing, cyanosis, or edema. SKIN: Normal; no rash; no jaundice. COUNTY MANAGER: No focal deficits; alert and oriented times three. (Lili Casas) Assessment and Plan Plan ASSESSMENT: - Dysphagia, Hx esophageal diverticulum. Pt reports that he has had issues swallowing since 1961 when he had HH repair. Since that time, he has had multiple EGD with dilatations, but has not had any improvement. He has learned to control this by chewing his food well, taking small bites, taking frequent sips of water, eating upright, and cutting off food after 6pm. He states by following these measures, he is able to eat and does okay. EGD/Colonoscopy (09/03/15)--- -> reflux esophagitis in the distal esophagus, biopsy was performed, wide mouthed diverticulum in the distal esophagus, retroflexed views revealed a medium hiatal hernia. Pedunculated polyp was found in the sigmoid colon; polypectomy was performed using snare cautery, retroflexed views revealed Grade II hemorrhoids, rectal exam revealed medium external hemorrhoids. Stomach antrum bx- fragment of squamous mucosa with basal cell hyperplasia, elongation of papillae and intra epithelial lymphocytes and rare eosinophils (~2/HPF), no gastric mucosa seen (comments- may represent reflux esophagitis if sample is from the esophagus), distal esophagus with squamous epithelium with mild chronic esophagitis, no columnar cells/glandular mucosa seen, sigmoid colon polyp tubular adenoma. ? Dysmotility ? Aspiration from esophageal diverticulum. Cont. PPI. Get Barium Swallow. - GERD, PPI - Multiple cavitary lesions right lung. Sputum cx pending. Going for bronchoscopy today. Flagyl, Ceftriaxone, Vanco, - Leukocytosis, elevated ESR > 140.0. WBC 11.7. Sputum cx pending. Bcx no growth 2 days. - CAD, Bipolar d/o, schizoaffective d/o, HTN, CKD, chronic low back pain per attending. PLAN: - NPO for bronchoscopy - Barium swallow in am - Cont. PPI - Abx per ID - Further recommendations to follow based on results of above - PT seen and examined by Dr. Garza and myself and this note is written on his behalf (Lili Casas) Physician Comments Patient seen and examined Agree with above Continue with current supportive care Monitor labs Await bronchoscopy and barium swallow Considering EGD based on barium swallow result (Bobo Garza MD) Lili Casas Mar 20, 2017 14:31 Bobo Garza MD Mar 20, 2017 21:32
[2017-03-20 16:00] VITALS: BP 125/67; PULSE 88; RESP 17; TEMP 98.2; O2SAT 95
--- NOTE | 2017-03-20 16:01 | ECHRPT ---
Indication: endocarditis CONCLUSIONS The left ventricular systolic function is low normal with an estimated ejection fraction in the rang e of 50- 55%. Normal left ventricular size. Mild mitral valve regurgitation. There is mild tricuspid valve regurgitation. The estimated pulmonary arterial pressure is 39.8 mmHg. No vegatation or masses identified BP: / HR: Rhythm: MEASUREMENTS (Male / Female) Normal Values Technical Quality:Good 2D ECHO LV Diastolic Diameter PLAX 3.7 cm 4.2 - 5.9 / 3.9 - 5.3 cm LV Systolic Diameter PLAX 2.8 cm IVS Diastolic Thickness 1.3 cm 0.6 - 1.0 / 0.6 - 0.9 cm LVPW Diastolic Thickness 0.8 cm 0.6 - 1.0 / 0.6 - 0.9 cm LV Relative Wall Thickness 0.6 RV Internal Dim ED PLAX 2.3 cm M-MODE Aortic Root Diameter MM 3.4 cm LA Systolic Diameter MM 2.4 cm LA Ao Ratio MM 0.7 AV Cusp Separation MM 1.7 cm DOPPLER Mitral E Point Velocity 77.0 cm/s Mitral A Point Velocity 79.0 cm/s Mitral E to A Ratio 1.0 LV E' Lateral Velocity 14.8 cm/s Mitral E to LV E' Lateral Ratio 5.2 LV E' Septal Velocity 9.8 cm/s Mitral E to LV E' Septal Ratio 7.9 TR Peak Velocity 273.0 cm/s TR Peak Gradient 29.8 mmHg Right Atrial Pressure 10.0 mmHg Pulmonary Artery Systolic Pressu 39.8 mmHg Right Ventricular Systolic Press 39.8 mmHg FINDINGS LEFT VENTRICLE The left ventricular systolic function is low normal with an estimated ejection fraction in the rang e of 50- 55%. Normal left ventricular size. RIGHT VENTRICLE Normal right ventricular size and systolic function. LEFT ATRIUM The left atrial size is normal. RIGHT ATRIUM The right atrial size is normal. ATRIAL SEPTUM Normal atrial septal thickness without atrial level shunting by limited color doppler interrogation. AORTA The aortic root and proximal ascending aorta are normal in size on limited imaging. MITRAL VALVE Structurally normal mitral valve. Mild mitral valve regurgitation. AORTIC VALVE Trileaflet aortic valve. No aortic valve stenosis or regurgitation. TRICUSPID VALVE Structurally normal tricuspid valve. There is mild tricuspid valve regurgitation. The estimated pulmonary arterial pressure is 39.8 mmHg. PULMONARY VALVE No pulmonary valve regurgitation or stenosis. VESSELS The inferior vena cava is normal in size. PERICARDIUM No pericardial effusion. Marcos Nguyen MD (Electronically Signed) Final Date:20 March 2017 16:00
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
--- NOTE | 2017-03-20 19:43 | HHI.PR ---
Subjective Remarks YOWM with Bipolar disorder, multiple cavitary lesions denies sob No fever Had bronch done No mass or endobronchial lesion Objective Vital Signs Vital Signs Date Time Temp Pulse Resp B/P (MAP) Pulse Ox O2 Delivery O2 Flow Rate FiO2 03/20/17 16:00 98.2 88 17 125/67 (86) 95 03/20/17 12:00 98.5 89 17 116/69 (85) 98 03/20/17 08:00 98.3 88 17 109/56 (73) 96 03/20/17 04:00 98.3 98 20 109/63 (78) 95 03/20/17 00:00 99.1 93 18 92/56 (68) 96 03/19/17 22:20 96 Nasal Cannula 2.50 03/19/17 20:19 Nasal Cannula 2.00 03/19/17 20:00 97.6 99 20 160/77 (104) 97 I/O 03/19/17 03/19/17 03/19/17 03/20/17 03/20/17 03/20/17 07:00 15:00 23:00 07:00 15:00 23:00 Intake Total 1100 ml 261 ml 600 ml Output Total 800 ml 5 ml Balance 300 ml 261 ml 595 ml Intake IV Total 1100 ml 261 ml 100 ml Other 500 ml Output Urine Total 800 ml Estimated Blood Loss 5 ml # Voids 2 # Bowel Movements 0 Result Diagram: 03/20/17 0659 03/20/17 0659 Objective Remarks GENERAL: MBMN WM, weak, NAD SKIN: Warm and dry. HEAD: Normocephalic. EYES: No scleral icterus. No injection or drainage. NECK: Supple, trachea midline. No JVD or lymphadenopathy. CARDIOVASCULAR: Regular rate and rhythm without murmurs, gallops, or rubs. RESPIRATORY: Breath sounds equal bilaterally. No accessory muscle use. GASTROINTESTINAL: Abdomen soft, non-tender, nondistended. MUSCULOSKELETAL: No cyanosis, or edema. BACK: Nontender without obvious deformity. No CVA tenderness. A/P Assessment and Plan Multiple cavitary lesions right lung Bipolar disorder Weight loss PLAN Cont Abx per ID Sputum for AFB Check Bronch results Bunny Rehman MD Mar 20, 2017 19:43
[2017-03-20] MEDS ORDERED: RESP: ALBUTEROL 1.25 MG/3 ML NEB (PRN) ONE (19:46)
[2017-03-20] MEDS ORDERED: DO NOT ADM ANY ANTICOAGULANT DRUGS PRN (20:45)
--- NOTE | 2017-03-20 21:14 | RADRPT ---
EXAM DATE/TIME: 03/20/2017 20:25 [facility] COMPARISON: CT THORAX W CONTRAST, March 18, 2017, 5:18. CHEST SINGLE AP, May 12, 2015, 15:38. INDICATIONS : Evaluate for pneumothorax. Post bronch. MEDICAL HISTORY : Hernia, hiatal. Asthma SURGICAL HISTORY : Tonsillectomy. Coronary artery stent.esophageal surgery ENCOUNTER: Initial ACUITY: 1 day PAIN SCORE: 0/10 LOCATION: Bilateral chest FINDINGS: There is no evidence of pneumothorax. Multiple right-sided pulmonary masses are noted. Focal alveolar consolidation involving the right lung base is noted consistent with atelectasis and/or infiltrate. The heart is normal. CONCLUSION: 1. No evidence of pneumothorax. 2. Right basilar alveolar consolidation consistent with atelectasis and/or infiltrate. 3. Multiple right-sided pulmonary masses. Checo Acharya MD on March 20, 2017 at 21:10 Board Certified Radiologist. This report was verified electronically.
[2017-03-20 21:40] VITALS: BP 114/73; PULSE 88; RESP 20; TEMP 97.9; O2SAT 95
[2017-03-20] MEDS: TOPIRAMATE 100 MG TAB PO SCH (22:36)
[2017-03-20] MEDS: ATORVASTATIN 20 MG TAB PO SCH (22:36)
[2017-03-20] MEDS: traZODone HCL 50 MG TAB PO SCH (22:37)
[2017-03-20] MEDS: QUEtiapine FUMARATE 100 MG TAB PO SCH (22:37)
[2017-03-21] VITALS (8 sets, daily range): BP systolic 89–147; BP diastolic 59–82; PULSE 64–89; RESP 16–19; TEMP 97.1–98.7; O2SAT 94–97
[2017-03-21] MEDS: NS + KCL 20 MEQ INJ 1,000 ML IV SCH (00:37)
[2017-03-21] MEDS: diphenhydrAMINE HCL 50 MG/ML VIAL IV PUSH SCH ×2 (02:32→05:50)
[2017-03-21] MEDS: VANCOMYCIN INJ 1,100 MG in SODIUM CHLOR 0.9% 250 ML INJ 250 ML IV SCH (02:33)
[2017-03-21] MEDS: metroNIDAZOLE 500 MG TAB PO SCH ×2 (05:50→13:32)
[2017-03-21] MEDS: RESP: ALBUTEROL 2.5 MG/3 ML NEB (SCH) NEB ×3 (08:24→21:32)
[2017-03-21] MEDS: PANTOPRAZOLE SOD 40 MG DELAYED RELEASE TAB PO SCH (08:59)
[2017-03-21 09:45] LABS: M. TUBERCULOSIS PCR NOT DETECTED (NOT DETECT)
--- NOTE | 2017-03-21 10:33 | HHI.PR ---
Subjective Remarks doing ok. no new complaints. Objective Vitals heent neg heart reg lung diminished bases abd s/nt ext no edema Vital Signs Date Time Temp Pulse Resp B/P (MAP) Pulse Ox O2 Delivery O2 Flow Rate FiO2 03/21/17 09:02 Room Air 03/21/17 08:50 98.7 78 16 105/66 (79) 96 03/21/17 08:28 97 Nasal Cannula 2.50 03/21/17 04:30 97.9 80 19 110/75 (87) 95 03/21/17 00:00 97.1 80 19 115/78 (90) 96 03/20/17 23:00 Nasal Cannula 2.00 03/20/17 21:42 Nasal Cannula 2.50 03/20/17 21:40 97.9 88 20 114/73 (87) 95 03/20/17 16:00 98.2 88 17 125/67 (86) 95 03/20/17 12:00 98.5 89 17 116/69 (85) 98 Result Diagram: 03/20/17 0659 03/20/17 0659 Imaging Last Impressions Chest X-Ray 03/18/17 0301 Signed Impressions: Service Date/Time: Saturday, March 18, 2017 03:23 - CONCLUSION: 1. Multiple right-sided nodular density concerning for metastatic deposits. 2. Consolidation in the right middle. This may be due to some central adenopathy and regional airway compression. 3. Left lung is clear Sky Gomes MD Chest CT 03/18/17 0000 Signed Impressions: Service Date/Time: Saturday, March 18, 2017 05:18 - CONCLUSION: 1. Multiple cavitary mass lesions in the right hemithorax. Both neoplastic and infectious etiology should be considered. 2. Right hilar and subcarinal prominent lymph nodes. 3. Atelectatic changes in the right middle Sky Gomes MD A/P Problem List: (1) Cavitary lesion of lung ICD Codes: J98.4 - Other disorders of lung Status: Acute Plan: Pt with multiple cavitary mass lesions of the right lung concern for infectious etiology. r/o malignancy recent dental work. r/o endocarditis and septic emboli no clear aspiration event per history. TB and fungal etiologies being considered. No known immunosuppression echo: 03/20. no vegetations hep c ab positive bronchoscopy 03/20 . no endobronchial lesions f/u blood cx..ngtd f/u sputum and bronch specimens for afb/gs cx/fungal pt isolated. cont abx per ID (2) Anxiety and depression ICD Codes: F41.8 - Anxiety and depression Status: Chronic Plan: cont medications,stable (3) Hyperlipidemia ICD Codes: E78.5 - Hyperlipidemia Status: Chronic Plan: cont atorvastatin (4) Migraine ICD Codes: G43.909 - Migraine, unspecified, not intractable, without status migrainosus Status: Chronic Plan: stable cont topamax (5) CAD (coronary artery disease) ICD Codes: I25.10 - CAD (coronary artery disease) Status: Chronic Plan: confirmed in [facility] EHR he was on plavix and aspirin, on hold due to hemoptysis (6) Hepatitis C antibody positive in blood ICD Codes: R76.8 - Other specified abnormal immunological findings in serum Status: Acute Problem Qualifiers (1) Migraine: (2) CAD (coronary artery disease): Jeffrey Clayton MD Mar 21, 2017 10:32
--- NOTE | 2017-03-21 10:55 | RADRPT ---
EXAM DATE/TIME: 03/21/2017 10:28 [facility] COMPARISON: CHEST SINGLE AP, March 20, 2017, 20:25. INDICATIONS : Dysphagia and dysmotility. Trouble swallowing solids and uses liquids to get the solid food down. FLUORO TIME: 1.6 minutes IMAGE COUNT: 8 CONTRAST: 1. Liquid E-Z Paque Barium Sulfate (60% w/v, 41% w.w) MEDICAL HISTORY : Hernia, hiatal. Asthma SURGICAL HISTORY : Tonsillectomy. Coronary artery stent.esophageal surgery ENCOUNTER: Subsequent ACUITY: 3 days PAIN SCORE: 0/10 LOCATION: Bilateral Esophagus FINDINGS: Examination is severely limited by patient's weakened clinical status. Upright films were obtained. There is moderate esophageal dysmotility in the thoracic esophagus. Small hiatal hernia is evident. There is no obstruction. The cervical esophagus is not evaluated. CONCLUSION: Limited swallow to thoracic esophagus shows esophageal dysmotility consistent with mild presbyesophag us without obstruction to liquids. Cervical esophagus is not evaluated. Hima Sorenson MD FACR on March 21, 2017 at 10:49 Board Certified Radiologist. This report was verified electronically.
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
[2017-03-21] MEDS ORDERED: diphenhydrAMINE HCL 25 MG CAP PO PRN (14:15)
--- NOTE | 2017-03-21 14:20 | HHI.GIFU ---
Subjective Remarks Pt resting in bed. No complaints. (Rox Salazar) Objective Vitals I&O Vital Signs Date Time Temp Pulse Resp B/P (MAP) Pulse Ox O2 Delivery O2 Flow Rate FiO2 03/21/17 12:47 98.7 89 16 147/82 (103) 94 03/21/17 09:02 Room Air 03/21/17 08:50 98.7 78 16 105/66 (79) 96 03/21/17 08:28 97 Nasal Cannula 2.50 03/21/17 04:30 97.9 80 19 110/75 (87) 95 03/21/17 00:00 97.1 80 19 115/78 (90) 96 03/20/17 23:00 Nasal Cannula 2.00 03/20/17 21:42 Nasal Cannula 2.50 03/20/17 21:40 97.9 88 20 114/73 (87) 95 03/20/17 16:00 98.2 88 17 125/67 (86) 95 I/O 03/20/17 03/20/17 03/20/17 03/21/17 03/21/17 03/21/17 07:00 15:00 23:00 07:00 15:00 23:00 Intake Total 261 ml 600 ml 450 ml Output Total 5 ml Balance 261 ml 595 ml 450 ml Intake Oral 0 ml 450 ml IV Total 261 ml 100 ml Other 500 ml Estimated Blood Loss 5 ml # Voids 0 2 # Bowel Movements 0 0 Laboratory Laboratory Tests Test 03/21/17 04:10 M. tuberculosis Complex DNA (PCR) NOT DETECTED Date/Time Source Procedure Growth Status 03/18/17 15:01 Blood Peripheral Aerobic Blood Culture - Preliminary NO GROWTH IN 3 DAYS Resulted 03/18/17 15:01 Blood Peripheral Anaerobic Blood Culture - Preliminary NO GROWTH IN 3 DAYS Resulted 03/20/17 18:37 Bronchial Washings Right Lower Lobe Fungal Smear - Final NO FUNGAL ELEMENTS SEEN. Resulted 03/20/17 18:37 Bronchial Washings Right Lower Lobe Fungal Culture Pending Resulted Physical Exam HEENT: PERRL; atraumatic; no jaundice. CHEST: CTA, diminished CARDIAC: RRR ABDOMEN: Soft, nondistended, nontender; no hepatosplenomegaly; bowel sounds are present in all four quadrants. EXTREMITIES: No clubbing, cyanosis, or edema. SKIN: Normal; no rash; no jaundice. 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 (Rox Salazar) Assessment and Plan Plan ASSESSMENT: - Dysphagia, Hx esophageal diverticulum. Pt reports that he has had issues swallowing since 1961 when he had HH repair. Since that time, he has had multiple EGD with dilatations, but has not had any improvement. He has learned to control this by chewing his food well, taking small bites, taking frequent sips of water, eating upright, and cutting off food after 6pm. He states by following these measures, he is able to eat and does okay. EGD/Colonoscopy (09/03/15)--- -> reflux esophagitis in the distal esophagus, biopsy was performed, wide mouthed diverticulum in the distal esophagus, retroflexed views revealed a medium hiatal hernia. Pedunculated polyp was found in the sigmoid colon; polypectomy was performed using snare cautery, retroflexed views revealed Grade II hemorrhoids, rectal exam revealed medium external hemorrhoids. Stomach antrum bx- fragment of squamous mucosa with basal cell hyperplasia, elongation of papillae and intra epithelial lymphocytes and rare eosinophils (~2/HPF), no gastric mucosa seen (comments- may represent reflux esophagitis if sample is from the esophagus), distal esophagus with squamous epithelium with mild chronic esophagitis, no columnar cells/glandular mucosa seen, sigmoid colon polyp tubular adenoma. ? Aspiration from esophageal diverticulum. Cont. PPI. Ba swallow --> esophageal dysmotility, presbyopia - GERD, PPI - Multiple cavitary lesions right lung. Sputum cx pending. s/p bronch Flagyl , Ceftriaxone, Vanco, - Leukocytosis, elevated ESR > 140.0. WBC 11.7. Sputum cx pending. Bcx no growth 2 days. - CAD, Bipolar d/o, schizoaffective d/o, HTN, CKD, chronic low back pain per attending. PLAN: - Cont. PPI - Abx per ID - await bronch cultures and cytology - supportive care - PT seen and examined by Dr. Garza and myself and this note is written on his behalf (Rox Salazar) Physician Comments Patient seen and examined Agree with above Continue with current supportive care Monitor labs Barium swallow basically revealing presbyesophagus Not much can be done at this point except for precautionary measures Not much to add from a GI perspective we will sign off (Bobo Garza MD) Rox Salazar Mar 21, 2017 14:20 Bobo Garza MD Mar 21, 2017 20:40
[2017-03-21] MEDS: cefTRIAXone INJ 2,000 MG in SODIUM CHLORIDE 0.9% INJ 100 ML IV SCH (15:34)
--- NOTE | 2017-03-21 19:02 | HHI.PR ---
Subjective Remarks YOWM with Bipolar disorder, multiple cavitary lesions denies sob No fever Had bronch done No mass or endobronchial lesion MTB PCR negative Objective Vital Signs Vital Signs Date Time Temp Pulse Resp B/P (MAP) Pulse Ox O2 Delivery O2 Flow Rate FiO2 03/21/17 17:19 98.6 84 18 89/59 (69) 97 03/21/17 16:04 96 Nasal Cannula 2.50 03/21/17 12:47 98.7 89 16 147/82 (103) 94 03/21/17 09:02 Room Air 03/21/17 08:50 98.7 78 16 105/66 (79) 96 03/21/17 08:28 97 Nasal Cannula 2.50 03/21/17 04:30 97.9 80 19 110/75 (87) 95 03/21/17 00:00 97.1 80 19 115/78 (90) 96 03/20/17 23:00 Nasal Cannula 2.00 03/20/17 21:42 Nasal Cannula 2.50 03/20/17 21:40 97.9 88 20 114/73 (87) 95 I/O 03/20/17 03/20/17 03/20/17 03/21/17 03/21/17 03/21/17 07:00 15:00 23:00 07:00 15:00 23:00 Intake Total 261 ml 600 ml 450 ml 480 ml Output Total 5 ml Balance 261 ml 595 ml 450 ml 480 ml Intake Oral 0 ml 450 ml 480 ml IV Total 261 ml 100 ml Other 500 ml Estimated Blood Loss 5 ml # Voids 0 2 4 # Bowel Movements 0 0 1 Result Diagram: 03/20/1759 03/20/17 0659 Objective Remarks GENERAL: MBMN WM, weak, NAD SKIN: Warm and dry. HEAD: Normocephalic. EYES: No scleral icterus. No injection or drainage. NECK: Supple, trachea midline. No JVD or lymphadenopathy. CARDIOVASCULAR: Regular rate and rhythm without murmurs, gallops, or rubs. RESPIRATORY: Breath sounds equal bilaterally. No accessory muscle use. GASTROINTESTINAL: Abdomen soft, non-tender, nondistended. MUSCULOSKELETAL: No cyanosis, or edema. BACK: Nontender without obvious deformity. No CVA tenderness. A/P Assessment and Plan Multiple cavitary lesions right lung Bipolar disorder Weight loss PLAN Cont Abx per ID Sputum for AFB Check Bronch results Bunny Rehman MD Mar 21, 2017 19:02
[2017-03-21] MEDS ORDERED: VANCOMYCIN TROUGH ONE (19:45)
[2017-03-22] VITALS (8 sets, daily range): BP systolic 113–138; BP diastolic 69–77; PULSE 72–89; RESP 16–19; TEMP 97.2–98.5; O2SAT 95–97
[2017-03-22] MEDS: VANCOMYCIN INJ 1,100 MG in SODIUM CHLOR 0.9% 250 ML INJ 250 ML IV SCH (00:16)
[2017-03-22] MEDS: TOPIRAMATE 100 MG TAB PO SCH ×2 (00:17→21:06)
[2017-03-22] MEDS: ATORVASTATIN 20 MG TAB PO SCH ×2 (00:17→21:05)
[2017-03-22] MEDS: metroNIDAZOLE 500 MG TAB PO SCH ×4 (00:17→21:05)
[2017-03-22] MEDS: traZODone HCL 50 MG TAB PO SCH ×2 (00:17→21:05)
[2017-03-22] MEDS: QUEtiapine FUMARATE 100 MG TAB PO SCH ×2 (00:18→21:05)
[2017-03-22] MEDS: NS + KCL 20 MEQ INJ 1,000 ML IV SCH (00:18)
[2017-03-22] MEDS: RESP: ALBUTEROL 2.5 MG/3 ML NEB (SCH) NEB ×3 (03:29→15:49)
--- NOTE | 2017-03-22 08:21 | HHI.PR ---
Subjective Remarks feels overall better. still weak. some right side cp when breathing or palpating Objective Vitals heart reg lung diminished right lung ext no edema Vital Signs Date Time Temp Pulse Resp B/P (MAP) Pulse Ox O2 Delivery O2 Flow Rate FiO2 03/22/17 04:00 98.0 78 19 117/72 (87) 95 03/22/17 00:25 98.5 79 16 133/77 (95) 97 03/21/17 21:30 Room Air 03/21/17 20:30 97.4 64 18 115/80 (92) 97 03/21/17 17:19 98.6 84 18 89/59 (69) 97 03/21/17 16:04 96 Nasal Cannula 2.50 03/21/17 12:47 98.7 89 16 147/82 (103) 94 03/21/17 09:02 Room Air 03/21/17 08:50 98.7 78 16 105/66 (79) 96 03/21/17 08:28 97 Nasal Cannula 2.50 Result Diagram: 03/20/17 0659 03/20/17 0659 Imaging Last Impressions Chest X-Ray 03/18/17 0301 Signed Impressions: Service Date/Time: Saturday, March 18, 2017 03:23 - CONCLUSION: 1. Multiple right-sided nodular density concerning for metastatic deposits. 2. Consolidation in the right middle. This may be due to some central adenopathy and regional airway compression. 3. Left lung is clear Sky Gomes MD Chest CT 03/18/17 0000 Signed Impressions: Service Date/Time: Saturday, March 18, 2017 05:18 - CONCLUSION: 1. Multiple cavitary mass lesions in the right hemithorax. Both neoplastic and infectious etiology should be considered. 2. Right hilar and subcarinal prominent lymph nodes. 3. Atelectatic changes in the right middle Sky Gomes MD A/P Problem List: (1) Cavitary lesion of lung ICD Codes: J98.4 - Other disorders of lung Status: Acute Plan: 1)multiple cavitary mass lesions of the right lung concern for infectious etiology. r/o malignancy recent dental work. r/o endocarditis and septic emboli no clear aspiration event per history. echo: 03/20. no vegetations hep c ab positive bronchoscopy 03/20 . no endobronchial lesions MTB pcr negative admission blood cx ngtd sputum and bronchoscopy cx's ngtd. f/u path. isolation removed oob/PT eval IS today abx per ID (2) Anxiety and depression ICD Codes: F41.8 - Anxiety and depression Status: Chronic Plan: cont medications,stable (3) Hyperlipidemia ICD Codes: E78.5 - Hyperlipidemia Status: Chronic Plan: cont atorvastatin (4) Migraine ICD Codes: G43.909 - Migraine, unspecified, not intractable, without status migrainosus Status: Chronic Plan: stable cont topamax (5) CAD (coronary artery disease) ICD Codes: I25.10 - CAD (coronary artery disease) Status: Chronic Plan: confirmed in [facility] EHR he was on plavix and aspirin, on hold due to hemoptysis (6) Hepatitis C antibody positive in blood ICD Codes: R76.8 - Other specified abnormal immunological findings in serum Status: Acute Problem Qualifiers (1) Migraine: (2) CAD (coronary artery disease): Jeffrey Clayton MD Mar 22, 2017 08:21
[2017-03-22] MEDS: PANTOPRAZOLE SOD 40 MG DELAYED RELEASE TAB PO SCH (09:26)
[2017-03-22] MEDS: cefTRIAXone INJ 2,000 MG in SODIUM CHLORIDE 0.9% INJ 100 ML IV SCH (11:18)
[2017-03-22] MEDS: VANCOMYCIN INJ 1,500 MG in SODIUM CHLORID 0.9% 500 ML INJ 500 ML IV SCH (12:54)
--- NOTE | 2017-03-22 17:10 | HHI.PR ---
Subjective Remarks YOWM with Bipolar disorder, multiple cavitary lesions denies sob No fever Had bronch done No mass or endobronchial lesion MTB PCR negative Bronchial cultures negative so far Objective Vital Signs Vital Signs Date Time Temp Pulse Resp B/P (MAP) Pulse Ox O2 Delivery O2 Flow Rate FiO2 03/22/17 15:49 97 Nasal Cannula 2.50 03/22/17 15:00 97.7 72 18 119/72 (88) 97 03/22/17 11:32 98.4 89 18 124/69 (87) 96 03/22/17 11:23 97 Nasal Cannula 2.50 03/22/17 08:45 98.5 85 18 113/69 (84) 95 03/22/17 08:45 95 Room Air 03/22/17 04:00 98.0 78 19 117/72 (87) 95 03/22/17 00:25 98.5 79 16 133/77 (95) 97 03/21/17 21:30 Room Air 03/21/17 20:30 97.4 64 18 115/80 (92) 97 03/21/17 17:19 98.6 84 18 89/59 (69) 97 I/O 03/21/17 03/21/17 03/21/17 03/22/17 03/22/17 03/22/17 07:00 15:00 23:00 07:00 15:00 23:00 Intake Total 450 ml 1280 ml 661 ml 1100 ml 500 ml Output Total 400 ml Balance 450 ml 1280 ml 261 ml 1100 ml 500 ml Intake Oral 450 ml 1280 ml 400 ml IV Total 261 ml 1100 ml 500 ml Output Urine Total 400 ml # Voids 2 4 2 # Bowel Movements 0 1 0 1 Result Diagram: 03/20/17 0659 03/22/17 0929 Objective Remarks GENERAL: MBMN WM, weak, NAD SKIN: Warm and dry. HEAD: Normocephalic. EYES: No scleral icterus. No injection or drainage. NECK: Supple, trachea midline. No JVD or lymphadenopathy. CARDIOVASCULAR: Regular rate and rhythm without murmurs, gallops, or rubs. RESPIRATORY: Breath sounds equal bilaterally. No accessory muscle use. GASTROINTESTINAL: Abdomen soft, non-tender, nondistended. MUSCULOSKELETAL: No cyanosis, or edema. BACK: Nontender without obvious deformity. No CVA tenderness. A/P Assessment and Plan Multiple cavitary lesions right lung Bipolar disorder Weight loss PLAN Cont Abx per ID Sputum for AFB Check Bronch results Bx, cytology pending Bunny Rehman MD Mar 22, 2017 17:10
[2017-03-23] VITALS (7 sets, daily range): BP systolic 103–147; BP diastolic 57–81; PULSE 73–88; RESP 16–20; TEMP 97.2–98.7; O2SAT 94–97
[2017-03-23 04:59] LABS: BICARBONATE 22.7 MEQ/L (21.0-32.0); POTASSIUM 3.4 MEQ/L (3.5-5.1)
[2017-03-23] MEDS: metroNIDAZOLE 500 MG TAB PO SCH ×3 (05:51→20:53)
[2017-03-23] MEDS ORDERED: PHARMACY ORDERED LAB ONE (07:45)
[2017-03-23] MEDS: PANTOPRAZOLE SOD 40 MG DELAYED RELEASE TAB PO SCH (08:15)
[2017-03-23] MEDS: VANCOMYCIN INJ 1,500 MG in SODIUM CHLORID 0.9% 500 ML INJ 500 ML IV SCH (08:15)
--- NOTE | 2017-03-23 08:50 | HHI.PR ---
Subjective Remarks overall feels better. ambulated in hallway yesterday. Objective Vitals heart reg lung course bs abd s/nt ext no edema Vital Signs Date Time Temp Pulse Resp B/P (MAP) Pulse Ox O2 Delivery O2 Flow Rate FiO2 03/23/17 07:50 98.0 76 18 103/57 (72) 94 03/23/17 05:50 98.7 82 16 112/57 (75) 95 03/23/17 01:38 98.0 79 16 110/58 (75) 96 03/22/17 21:12 97.2 82 18 138/75 (96) 97 03/22/17 20:55 Nasal Cannula 2.00 03/22/17 15:49 97 Nasal Cannula 2.50 03/22/17 15:00 97.7 72 18 119/72 (88) 97 03/22/17 11:32 98.4 89 18 124/69 (87) 96 03/22/17 11:23 97 Nasal Cannula 2.50 Result Diagram: 03/20/17 0659 03/23/17 0418 Imaging Last Impressions Chest X-Ray 03/18/17 0301 Signed Impressions: Service Date/Time: Saturday, March 18, 2017 03:23 - CONCLUSION: 1. Multiple right-sided nodular density concerning for metastatic deposits. 2. Consolidation in the right middle. This may be due to some central adenopathy and regional airway compression. 3. Left lung is clear Sky Gomes MD Chest CT 03/18/17 0000 Signed Impressions: Service Date/Time: Saturday, March 18, 2017 05:18 - CONCLUSION: 1. Multiple cavitary mass lesions in the right hemithorax. Both neoplastic and infectious etiology should be considered. 2. Right hilar and subcarinal prominent lymph nodes. 3. Atelectatic changes in the right middle Sky Gomes MD A/P Problem List: (1) Cavitary lesion of lung ICD Codes: J98.4 - Other disorders of lung Status: Acute Plan: 1)multiple cavitary mass lesions of the right lung concern for infectious etiology. r/o malignancy recent dental work. r/o endocarditis and septic emboli no clear aspiration event per history. echo: 03/20. no vegetations hep c ab positive bronchoscopy 03/20 . no endobronchial lesions MTB pcr negative admission blood cx ngtd sputum and bronchoscopy cx's ngtd. f/u path. isolation removed oob/PT eval IS today abx per ID add ensure to meals. ADDENDUM: - Spoke with ID. Dr. Ascencio, today about antibiotics at discharge. She felt that if the patient is swallowing without difficulty that the pt would be a good candidate for oral antibiotics for 2-4 weeks. I called the patient nurse to confirm that the pt is indeed swallowing without difficulty and the pts nurse confirms this. The patient has had long standing issues with dysphagia and barium swallow indicated presbyesophagus and GI had been following and felt that based on the BS findings, there was not much that could be done except for precautionary measures regarding the dysphagia but the pt is currently swallowing without difficulty. - ID has recommended oral Levaquin and Flagyl x 2 weeks with one refill each and then followup with Dr. Jessica Morales in 2 weeks. - He has been on oral Flagyl 500mg Q8H since 03/19. We will stop the Vanc and Rocephin and start oral Levaquin today. - Due to the possible QT prolongation with the combination of Levaquin and Seroquel we will check an EKG in the morning. (2) Anxiety and depression ICD Codes: F41.8 - Anxiety and depression Status: Chronic Plan: cont medications,stable (3) Hyperlipidemia ICD Codes: E78.5 - Hyperlipidemia Status: Chronic Plan: cont atorvastatin (4) Migraine ICD Codes: G43.909 - Migraine, unspecified, not intractable, without status migrainosus Status: Chronic Plan: stable cont topamax (5) CAD (coronary artery disease) ICD Codes: I25.10 - CAD (coronary artery disease) Status: Chronic Plan: confirmed in [facility] EHR he was on plavix and aspirin, on hold due to hemoptysis (6) Hepatitis C antibody positive in blood ICD Codes: R76.8 - Other specified abnormal immunological findings in serum Status: Acute Problem Qualifiers (1) Migraine: (2) CAD (coronary artery disease): Jeffrey Clayton MD Mar 23, 2017 08:50 Chelita Aponte Mar 23, 2017 11:55
[2017-03-23] MEDS: cefTRIAXone INJ 2,000 MG in SODIUM CHLORIDE 0.9% INJ 100 ML IV SCH (11:23)
--- NOTE | 2017-03-23 11:46 | HHI.PR ---
Subjective Remarks YOWM with Bipolar disorder, multiple cavitary lesions denies sob No fever Had bronch done No mass or endobronchial lesion MTB PCR negative Bronchial cultures negative so far has upset stomach Objective Vital Signs Vital Signs Date Time Temp Pulse Resp B/P (MAP) Pulse Ox O2 Delivery O2 Flow Rate FiO2 03/23/17 07:55 94 Nasal Cannula 2.00 03/23/17 07:50 98.0 76 18 103/57 (72) 94 03/23/17 05:50 98.7 82 16 112/57 (75) 95 03/23/17 01:38 98.0 79 16 110/58 (75) 96 03/22/17 21:12 97.2 82 18 138/75 (96) 97 03/22/17 20:55 Nasal Cannula 2.00 03/22/17 15:49 97 Nasal Cannula 2.50 03/22/17 15:00 97.7 72 18 119/72 (88) 97 I/O 03/22/17 03/22/17 03/22/17 03/23/17 03/23/17 03/23/17 07:00 15:00 23:00 07:00 15:00 23:00 Intake Total 661 ml 1100 ml 500 ml 500 ml Output Total 400 ml Balance 261 ml 1100 ml 500 ml 500 ml Intake Oral 400 ml IV Total 261 ml 1100 ml 500 ml 500 ml Output Urine Total 400 ml # Voids 2 1 # Bowel Movements 0 1 Result Diagram: 03/20/17 0659 03/23/17 0418 Objective Remarks GENERAL: MBMN WM, weak, NAD SKIN: Warm and dry. HEAD: Normocephalic. EYES: No scleral icterus. No injection or drainage. NECK: Supple, trachea midline. No JVD or lymphadenopathy. CARDIOVASCULAR: Regular rate and rhythm without murmurs, gallops, or rubs. RESPIRATORY: Breath sounds equal bilaterally. No accessory muscle use. GASTROINTESTINAL: Abdomen soft, non-tender, nondistended. MUSCULOSKELETAL: No cyanosis, or edema. BACK: Nontender without obvious deformity. No CVA tenderness. A/P Assessment and Plan Multiple cavitary lesions right lung Bipolar disorder Weight loss PLAN Cont Abx per ID Sputum for AFB Check Bronch results Bx, cytology pending Stable from pulm standpoint Avaialable prn over weekend. Bunny Rehman MD Mar 23, 2017 11:46
[2017-03-23] MEDS: LEVOFLOXACIN 500 MG TAB PO SCH (13:48)
[2017-03-23] MEDS: TOPIRAMATE 100 MG TAB PO SCH (20:53)
[2017-03-23] MEDS: QUEtiapine FUMARATE 100 MG TAB PO SCH (20:53)
[2017-03-23] MEDS: traZODone HCL 50 MG TAB PO SCH (20:54)
[2017-03-23] MEDS: ATORVASTATIN 20 MG TAB PO SCH (20:54)
[2017-03-24] VITALS (7 sets, daily range): BP systolic 114–150; BP diastolic 65–87; PULSE 86–91; RESP 18–20; TEMP 97.3–99.3; O2SAT 94–97
[2017-03-24] MEDS: metroNIDAZOLE 500 MG TAB PO SCH ×3 (05:33→21:53)
[2017-03-24] MEDS ORDERED: LEVOFLOXACIN 500 MG TAB PO SCH (09:00)
--- NOTE | 2017-03-24 09:12 | HHI.PR ---
Subjective Remarks seems to be doing a little better no appetite Objective Vitals heart reg lung diminished right lung abd s/nt ext no edema Vital Signs Date Time Temp Pulse Resp B/P (MAP) Pulse Ox O2 Delivery O2 Flow Rate FiO2 03/24/17 04:01 98.3 90 18 116/67 (83) 94 03/24/17 00:00 99.3 91 18 114/65 (81) 95 03/23/17 22:25 Nasal Cannula 2.50 03/23/17 20:00 Nasal Cannula 2.50 03/23/17 20:00 98.6 88 16 147/81 (103) 97 03/23/17 16:00 98.3 87 20 133/72 (92) 96 03/23/17 12:00 97.2 73 20 137/71 (93) 96 Result Diagram: 03/20/17 0659 03/24/17 0550 Imaging Last Impressions Chest X-Ray 03/18/17 0301 Signed Impressions: Service Date/Time: Saturday, March 18, 2017 03:23 - CONCLUSION: 1. Multiple right-sided nodular density concerning for metastatic deposits. 2. Consolidation in the right middle. This may be due to some central adenopathy and regional airway compression. 3. Left lung is clear Sky Gomes MD Chest CT 03/18/17 0000 Signed Impressions: Service Date/Time: Saturday, March 18, 2017 05:18 - CONCLUSION: 1. Multiple cavitary mass lesions in the right hemithorax. Both neoplastic and infectious etiology should be considered. 2. Right hilar and subcarinal prominent lymph nodes. 3. Atelectatic changes in the right middle Sky Gomes MD A/P Problem List: (1) Cavitary lesion of lung ICD Codes: J98.4 - Other disorders of lung Status: Acute Plan: 1)multiple cavitary mass lesions of the right lung concern for infectious etiology. r/o malignancy recent dental work. r/o endocarditis and septic emboli no clear aspiration event per history. echo: 03/20. no vegetations hep c ab positive bronchoscopy 03/20 . no endobronchial lesions MTB pcr negative admission blood cx ngtd sputum and bronchoscopy cx's ngtd. f/u bx. cytology neg for malignant cells isolation removed oob/PT eval IS today abx per ID add ensure to meals. megace. d/c tomorrow if stable. ADDENDUM: - Spoke with ID. Dr. Ascencio, 03/23 about antibiotics at discharge. She felt that if the patient is swallowing without difficulty that the pt would be a good candidate for oral antibiotics for 2-4 weeks. I called the patient nurse to confirm that the pt is indeed swallowing without difficulty and the pts nurse confirms this. The patient has had long standing issues with dysphagia and barium swallow indicated presbyesophagus and GI had been following and felt that based on the BS findings, there was not much that could be done except for precautionary measures regarding the dysphagia but the pt is currently swallowing without difficulty. - ID has recommended oral Levaquin and Flagyl x 2 weeks with one refill each and then followup with Dr. Jessica Morales in 2 weeks. - He has been on oral Flagyl 500mg Q8H since 03/19. We will stop the Vanc and Rocephin and start oral Levaquin - Due to the possible QT prolongation with the combination of Levaquin and Seroquel we will check an EKG (2) Anxiety and depression ICD Codes: F41.8 - Anxiety and depression Status: Chronic Plan: cont medications,stable (3) Hyperlipidemia ICD Codes: E78.5 - Hyperlipidemia Status: Chronic Plan: cont atorvastatin (4) Migraine ICD Codes: G43.909 - Migraine, unspecified, not intractable, without status migrainosus Status: Chronic Plan: stable cont topamax (5) CAD (coronary artery disease) ICD Codes: I25.10 - CAD (coronary artery disease) Status: Chronic Plan: confirmed in [facility] EHR he was on plavix and aspirin, on hold due to hemoptysis (6) Hepatitis C antibody positive in blood ICD Codes: R76.8 - Other specified abnormal immunological findings in serum Status: Acute Problem Qualifiers (1) Migraine: (2) CAD (coronary artery disease): Jeffrey Clayton MD Mar 24, 2017 09:12
[2017-03-24] MEDS: PANTOPRAZOLE SOD 40 MG DELAYED RELEASE TAB PO SCH (09:35)
[2017-03-24] MEDS: LEVOFLOXACIN 500 MG TAB PO SCH (13:43)
[2017-03-24] MEDS ORDERED: MEGESTROL ACETATE 40 MG TAB PO ONE (16:00)
--- NOTE | 2017-03-24 16:29 | EKG ---
Date Performed: 03/24/2017 Time Performed: 11:56:15 PTAGE: 66 years EKG: Sinus rhythm Compared to previous tracing, no significant change NORMAL ECG PREVIOUS TRACING : 03/18/2017 17.55 DOCTOR: Jeffrey Bell Interpretating Date/Time 03/24/2017 16:27:11
[2017-03-24] MEDS ORDERED: PHARMACY ORDERED LAB ONE (19:45)
[2017-03-24] MEDS: TOPIRAMATE 100 MG TAB PO SCH (20:02)
[2017-03-24] MEDS: ATORVASTATIN 20 MG TAB PO SCH (20:02)
[2017-03-24] MEDS: traZODone HCL 50 MG TAB PO SCH (20:02)
[2017-03-24] MEDS: QUEtiapine FUMARATE 100 MG TAB PO SCH (20:03)
[2017-03-24] MEDS: MEGESTROL ACETATE 40 MG TAB PO SCH (21:53)
[2017-03-25] VITALS (8 sets, daily range): BP systolic 98–130; BP diastolic 57–83; PULSE 79–93; RESP 18–20; TEMP 97.3–98.4; O2SAT 92–97
[2017-03-25] MEDS: metroNIDAZOLE 500 MG TAB PO SCH ×3 (06:13→21:20)
[2017-03-25] MEDS: MEGESTROL ACETATE 40 MG TAB PO SCH (06:13)
[2017-03-25] MEDS: PANTOPRAZOLE SOD 40 MG DELAYED RELEASE TAB PO SCH (09:00)
--- NOTE | 2017-03-25 09:16 | HHI.PR ---
Subjective Remarks c/o feeling weak. worried he can't take care of himself at home. says he lives along. no appetite. has been eating 25-50percent of meals. he is resistive to d/c home today. Objective Vitals sitting on edge bed looks weak..depresses heart reg lung course bs ext no edema Vital Signs Date Time Temp Pulse Resp B/P (MAP) Pulse Ox O2 Delivery O2 Flow Rate FiO2 03/25/17 08:11 98.0 85 20 113/69 (84) 93 03/25/17 07:36 Room Air 03/25/17 04:00 97.9 93 18 115/57 (76) 92 03/25/17 00:00 98.4 81 18 110/63 (79) 94 03/24/17 20:00 94 Room Air 03/24/17 20:00 98.0 87 18 150/87 (108) 95 03/24/17 20:00 95 Nasal Cannula 03/24/17 16:00 97.3 86 20 132/80 (97) 97 03/24/17 12:00 97.4 90 20 133/80 (97) 95 03/24/17 09:25 96 Nasal Cannula 2.50 Result Diagram: 03/24/17 0550 Imaging Last Impressions Chest X-Ray 03/18/17 0301 Signed Impressions: Service Date/Time: Saturday, March 18, 2017 03:23 - CONCLUSION: 1. Multiple right-sided nodular density concerning for metastatic deposits. 2. Consolidation in the right middle. This may be due to some central adenopathy and regional airway compression. 3. Left lung is clear Sky Gomes MD Chest CT 03/18/17 0000 Signed Impressions: Service Date/Time: Saturday, March 18, 2017 05:18 - CONCLUSION: 1. Multiple cavitary mass lesions in the right hemithorax. Both neoplastic and infectious etiology should be considered. 2. Right hilar and subcarinal prominent lymph nodes. 3. Atelectatic changes in the right middle Sky Gomes MD A/P Problem List: (1) Cavitary lesion of lung ICD Codes: J98.4 - Other disorders of lung Status: Acute Plan: 1)multiple cavitary mass lesions of the right lung concern for infectious etiology. r/o malignancy recent dental work. r/o endocarditis and septic emboli no clear aspiration event per history. echo: 03/20. no vegetations hep c ab positive bronchoscopy 03/20 . no endobronchial lesions MTB pcr negative admission blood cx ngtd sputum and bronchoscopy cx's ngtd. f/u bx. cytology neg for malignant cells isolation removed oob/PT eval IS today f/u pending lung pathology abx per ID...converted to levaquin/flagyl for at least 4weeks and further rx decided upon f/u with Dr Jessica Morales in 2 weeks. added ensure to meals. pace increased d/c tomorrow if stable. Patient so far expressing alot of concern for d/c home as he believes that he is to weak and will have hard time functioning on his own. He doesn't seem to need snf based on PT evaluations...? admit to snf for medical management might need to be considered as I think he will be high readmission risk. The patient will need alot of psychosocial support. hep c will need f/u with pcp/ID and ?GI referral once infection controlled. (2) Anxiety and depression ICD Codes: F41.8 - Anxiety and depression Status: Chronic Plan: cont medications,stable (3) Hyperlipidemia ICD Codes: E78.5 - Hyperlipidemia Status: Chronic Plan: cont atorvastatin (4) Migraine ICD Codes: G43.909 - Migraine, unspecified, not intractable, without status migrainosus Status: Chronic Plan: stable cont topamax (5) CAD (coronary artery disease) ICD Codes: I25.10 - CAD (coronary artery disease) Status: Chronic Plan: confirmed in [facility] EHR he was on plavix and aspirin, on hold due to hemoptysis (6) Hepatitis C antibody positive in blood ICD Codes: R76.8 - Other specified abnormal immunological findings in serum Status: Acute Problem Qualifiers (1) Migraine: (2) CAD (coronary artery disease): Jeffrey Clayton MD Mar 25, 2017 09:16
[2017-03-25] MEDS ORDERED: MEGESTROL ACETATE SUSP 400 MG/10 ML CUP PO ONE (09:45)
[2017-03-25] MEDS: LEVOFLOXACIN 500 MG TAB PO SCH (13:26)
[2017-03-25] MEDS: TOPIRAMATE 100 MG TAB PO SCH (21:20)
[2017-03-25] MEDS: traZODone HCL 50 MG TAB PO SCH (21:20)
[2017-03-25] MEDS: ATORVASTATIN 20 MG TAB PO SCH (21:20)
[2017-03-25] MEDS: QUEtiapine FUMARATE 100 MG TAB PO SCH (21:20)
[2017-03-26] VITALS (8 sets, daily range): BP systolic 114–150; BP diastolic 57–80; PULSE 77–99; RESP 18–20; TEMP 97.4–98.1; O2SAT 92–97
[2017-03-26] MEDS: metroNIDAZOLE 500 MG TAB PO SCH ×3 (05:29→22:27)
[2017-03-26] MEDS: PANTOPRAZOLE SOD 40 MG DELAYED RELEASE TAB PO SCH (09:05)
[2017-03-26] MEDS: MEGESTROL ACETATE SUSP 400 MG/10 ML CUP PO SCH (09:05)
[2017-03-26 09:32] LABS: AUTOMATED NEUTROPHIL # 12.2 TH/MM3 (1.8-7.7); BASOPHIL # 0.1 TH/MM3 (0-0.2); BASOPHIL % 0.4 % (0.0-2.0); EOSINOPHIL # 0.1 TH/MM3 (0-0.4); HEMATOCRIT 37.1 % (39.0-51.0); LYMPH % 4.1 % (9.0-44.0); LYMPHOCYTE # 0.6 TH/MM3 (1.0-4.8); MEAN CELL VOLUME 92.1 FL (80.0-100.0); MEAN CORPUSCULAR HEMOGLOBIN 29.3 PG (27.0-34.0); MEAN CORPUSCULAR HGB CONC 31.8 % (32.0-36.0); MONO % 7.5 % (0.0-8.0); PLATELET COUNT 237 TH/MM3 (150-450); RED BLOOD COUNT 4.03 MIL/MM3 (4.50-5.90); RED CELL DISTRIBUTION WIDTH 14.3 % (11.6-17.2); WHITE BLOOD COUNT 14.1 TH/MM3 (4.0-11.0)
[2017-03-26] MEDS ORDERED: PHARMACY ORDERED LAB ONE (09:45)
[2017-03-26 10:16] LABS: BICARBONATE 19.3 MEQ/L (21.0-32.0); POTASSIUM 3.4 MEQ/L (3.5-5.1)
[2017-03-26 10:23] LABS: HEMO FLAGS AUTO DIFF; PLATELET ESTIMATE SMEAR NORMAL (NORMAL); PLATELET MORPHOLOGY CLUMPED (NORMAL); SCAN/DIFF AUTO DIFF CONFIRMED
[2017-03-26] MEDS ORDERED: POTASSIUM CHLORIDE 20 MEQ CONTROLLED RELEASE TAB PO ONE (11:00)
[2017-03-26] MEDS ORDERED: METR-1 PO (11:41)
[2017-03-26] MEDS ORDERED: LEVA500T20 PO (11:41)
--- NOTE | 2017-03-26 11:46 | HHI.FF ---
Face to Face Verification Diagnosis: (1) Cavitary lesion of lung (2) Hypertension (3) Hyperlipidemia (4) Anxiety and depression (5) Hepatitis C antibody positive in blood Home Health Nursing Order: Medical education Nursing assessment with vital signs I have seen patient Checo Galan EaJr nilam on 03/26/17. My clinical findings support the need for the requested home health care services because: Deconditioned w/ increased weakness Infection w/ risk of complications I certify that my clinical findings support that this patient is homebound because: Unable to use public transportation Chelita Aponte Mar 26, 2017 11:46
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
[2017-03-26] MEDS: LEVOFLOXACIN 500 MG TAB PO SCH (14:03)
[2017-03-26] MEDS: FLUCONAZOLE 100 MG TAB PO SCH (17:45)
--- NOTE | 2017-03-26 18:03 | HHI.PR ---
Subjective Remarks No new complaints Pts sputum culture and bronchial washings are now growing yeast sp. Objective Vitals Vital Signs Date Time Temp Pulse Resp B/P (MAP) Pulse Ox O2 Delivery O2 Flow Rate FiO2 03/26/17 17:57 97 03/26/17 17:37 97.4 94 18 135/80 (98) 97 03/26/17 12:53 97.7 99 20 97 03/26/17 09:10 95 Room Air 03/26/17 08:51 95 21 03/26/17 08:20 98.0 97 20 150/66 (94) 97 03/26/17 04:00 98.1 87 18 114/57 (76) 92 03/26/17 00:00 97.9 77 18 115/69 (84) 94 03/25/17 22:40 95 21 03/25/17 21:00 94 Room Air 03/25/17 20:00 98.3 84 18 118/72 (87) 96 03/26/17 03/26/17 03/27/17 15:00 23:00 07:00 Intake Total 480 ml Balance 480 ml Intake Oral 480 ml Result Diagram: 03/26/17 0903/26/17 09 Other Results Laboratory Tests Test 03/24/17 20:20 03/26/17 09:01 Vancomycin Level Trough 6.1 MCG/ML White Blood Count 14.1 TH/MM3 Red Blood Count 4.03 MIL/MM3 Hemoglobin 11.8 GM/DL Hematocrit 37.1 % Mean Corpuscular Volume 92.1 FL Mean Corpuscular Hemoglobin 29.3 PG Mean Corpuscular Hemoglobin Concent 31.8 % Red Cell Distribution Width 14.3 % Platelet Count 237 TH/MM3 Mean Platelet Volume 9.6 FL Neutrophils (%) (Auto) 87.0 % Lymphocytes (%) (Auto) 4.1 % Monocytes (%) (Auto) 7.5 % Eosinophils (%) (Auto) 1.0 % Basophils (%) (Auto) 0.4 % Neutrophils # (Auto) 12.2 TH/MM3 Lymphocytes # (Auto) 0.6 TH/MM3 Monocytes # (Auto) 1.1 TH/MM3 Eosinophils # (Auto) 0.1 TH/MM3 Basophils # (Auto) 0.1 TH/MM3 CBC Comment AUTO DIFF Differential Comment AUTO DIFF CONFIRMED Platelet Estimate NORMAL Platelet Morphology Comment CLUMPED Blood Urea Nitrogen 12 MG/DL Creatinine 0.99 MG/DL Random Glucose 106 MG/DL Calcium Level 9.0 MG/DL Sodium Level 137 MEQ/L Potassium Level 3.4 MEQ/L Chloride Level 108 MEQ/L Carbon Dioxide Level 19.3 MEQ/L Anion Gap 10 MEQ/L Estimat Glomerular Filtration Rate 76 ML/MIN Imaging Last Impressions Chest X-Ray 03/18/17 0301 Signed Impressions: Service Date/Time: Saturday, March 18, 2017 03:23 - CONCLUSION: 1. Multiple right-sided nodular density concerning for metastatic deposits. 2. Consolidation in the right middle. This may be due to some central adenopathy and regional airway compression. 3. Left lung is clear Sky Gomes MD Chest CT 03/18/17 0000 Signed Impressions: Service Date/Time: Saturday, March 18, 2017 05:18 - CONCLUSION: 1. Multiple cavitary mass lesions in the right hemithorax. Both neoplastic and infectious etiology should be considered. 2. Right hilar and subcarinal prominent lymph nodes. 3. Atelectatic changes in the right middle Sky Gomes MD Objective Remarks General: NAD., AAOx3 Chest: CTA Cardiac: Regular Abd: +BS, soft ND/NT Ext: No edema Procedures 2D echo (03/20) - EF 50-55% - Mild mitral valve regurgitation - Mild tricuspid valve regurgitation - Estimated PA pressure 39.8mmHg - No vegetation of masses identified. A/P Problem List: (1) Cavitary lesion of lung ICD Codes: J98.4 - Other disorders of lung Status: Acute Plan: - Pt is a 66 y/o male who presented to the ED at [facility] on 03/18/17 with complaints of SOB, hemoptysis and dysphagia. - CT Chest (03/18) revealed multiple cavitary mass lesions in the right hemithorax and right hilar and subcarinal prominent lymph nodes with atelectatic changes in the right middle lobe. - Pt had recently had dental work prior to symptom onset and workup was done to r/o infectious etiology and malignancy. There was no clear aspiration event per history. - Pulmonary medicine and ID were consulted. - Blood cultures (03/18) with NGTD. - 2D echo (03/20) with no noted vegetations. - Pt was transferred to [facility] for bronchoscopy which was performed on 03/20 with no noted endobronchial lesions. - Cultures from the bronchial washings have grown out yeast sp otherwise no growth on the culture, gram stain, and acid fast stain/MB culture. - Pt was evaluated for TB and PCR was negative. - Pt was noted to be Hep c ab positive which will need to be followed up on as an outpt. - Cytology neg for malignant cells. - Pathology is pending. - During this admission pt was seen by GI as well for his long standing issues with dysphagia. Pt was evaluated with a barium swallow and noted to have presbyesophagus. - Abx converted to po Levaquin/Flagyl per ID recommendations to be given for at least 4weeks and further rx decided upon at f/u with Dr Jessica Morales in 2 weeks. - Pt was recommended to have a repeat Chest CT in 2 weeks which will need to be ordered by his PCP. - With pts cultures now growing yeast, the discharge was held on 03/26 for further workup and await final cultures. (2) Anxiety and depression ICD Codes: F41.8 - Anxiety and depression Status: Chronic Plan: - Cont medications,stable (3) Hyperlipidemia ICD Codes: E78.5 - Hyperlipidemia Status: Chronic Plan: - Cont atorvastatin (4) Migraine ICD Codes: G43.909 - Migraine, unspecified, not intractable, without status migrainosus Status: Chronic Plan: - Stable cont Topamax (5) CAD (coronary artery disease) ICD Codes: I25.10 - CAD (coronary artery disease) Status: Chronic Plan: - Confirmed in [facility] EHR he was on plavix and aspirin, on hold due to hemoptysis (6) Hepatitis C antibody positive in blood ICD Codes: R76.8 - Other specified abnormal immunological findings in serum Status: Acute Assessment and Plan Patient examined. Assessment and plan formulated with Chelita Aponte PA-C. I agree with the above. Problem Qualifiers (1) Migraine: (2) CAD (coronary artery disease): Chelita Aponte Mar 26, 2017 18:03 Sarmad Arauz DO Mar 31, 2017 00:12
--- NOTE | 2017-03-26 19:40 | HHI.PR ---
Subjective Remarks YOWM with Bipolar disorder, multiple cavitary lesions denies sob No fever Had bronch done No mass or endobronchial lesion MTB PCR negative Bronchial cultures negative so far Bronchial bx Neg BAL Yeast species Objective Vital Signs Vital Signs Date Time Temp Pulse Resp B/P (MAP) Pulse Ox O2 Delivery O2 Flow Rate FiO2 03/26/17 17:57 97 03/26/17 17:37 97.4 94 18 135/80 (98) 97 03/26/17 12:53 97.7 99 20 97 03/26/17 09:10 95 Room Air 03/26/17 08:51 95 21 03/26/17 08:20 98.0 97 20 150/66 (94) 97 03/26/17 04:00 98.1 87 18 114/57 (76) 92 03/26/17 00:00 97.9 77 18 115/69 (84) 94 03/25/17 22:40 95 21 03/25/17 21:00 94 Room Air 03/25/17 20:00 98.3 84 18 118/72 (87) 96 I/O 03/25/17 03/25/17 03/25/17 03/26/17 03/26/17 03/26/17 07:00 15:00 23:00 07:00 15:00 23:00 Intake Total 600 ml 480 ml Balance 600 ml 480 ml Intake Oral 600 ml 480 ml # Voids 2 3 # Bowel Movements 1 Result Diagram: 03/26/1790003/26/17900 Objective Remarks GENERAL: MBMN WM, weak, NAD SKIN: Warm and dry. HEAD: Normocephalic. EYES: No scleral icterus. No injection or drainage. NECK: Supple, trachea midline. No JVD or lymphadenopathy. CARDIOVASCULAR: Regular rate and rhythm without murmurs, gallops, or rubs. RESPIRATORY: Breath sounds equal bilaterally. No accessory muscle use. GASTROINTESTINAL: Abdomen soft, non-tender, nondistended. MUSCULOSKELETAL: No cyanosis, or edema. BACK: Nontender without obvious deformity. No CVA tenderness. A/P Assessment and Plan Multiple cavitary lesions right lung Bipolar disorder Weight loss PLAN Cont Abx per ID Stable from pulm standpoint. Stable on Bunny Guerrero MD Mar 26, 2017 19:40
[2017-03-26] MEDS: TOPIRAMATE 100 MG TAB PO SCH (22:27)
[2017-03-26] MEDS: traZODone HCL 50 MG TAB PO SCH (22:27)
[2017-03-26] MEDS: ATORVASTATIN 20 MG TAB PO SCH (22:27)
[2017-03-26] MEDS: QUEtiapine FUMARATE 100 MG TAB PO SCH (22:27)
[2017-03-27] VITALS: BP 106/71; PULSE 90; RESP 18; TEMP 98.2; O2SAT 94
[2017-03-27 04:00] VITALS: BP 102/66; PULSE 98; RESP 18; TEMP 97.3; O2SAT 93
[2017-03-27] MEDS: metroNIDAZOLE 500 MG TAB PO SCH ×3 (05:43→21:04)
--- NOTE | 2017-03-27 08:16 | HHI.PR ---
Subjective Remarks Pt now feeling like his left eye lid is drooping more. Denies any slurred speech, extremity weakness, dizziness or chest pain. Objective Vitals Vital Signs Date Time Temp Pulse Resp B/P (MAP) Pulse Ox O2 Delivery O2 Flow Rate FiO2 03/27/17 04:00 97.3 98 18 102/66 (78) 93 03/27/17 00:00 98.2 90 18 106/71 (83) 94 03/26/17 21:05 Room Air 03/26/17 20:00 97.6 89 18 138/76 (96) 97 03/26/17 17:57 97 03/26/17 17:37 97.4 94 18 135/80 (98) 97 03/26/17 12:53 97.7 99 20 97 03/26/17 09:10 95 Room Air 03/26/17 08:51 95 21 03/26/17 08:20 98.0 97 20 150/66 (94) 97 03/27/17 03/27/17 03/28/17 15:00 23:00 07:00 # Voids 3 Result Diagram: 03/26/17 0901 03/26/17 0901 Other Results Laboratory Tests Test 03/26/17 09:01 White Blood Count 14.1 TH/MM3 Red Blood Count 4.03 MIL/MM3 Hemoglobin 11.8 GM/DL Hematocrit 37.1 % Mean Corpuscular Volume 92.1 FL Mean Corpuscular Hemoglobin 29.3 PG Mean Corpuscular Hemoglobin Concent 31.8 % Red Cell Distribution Width 14.3 % Platelet Count 237 TH/MM3 Mean Platelet Volume 9.6 FL Neutrophils (%) (Auto) 87.0 % Lymphocytes (%) (Auto) 4.1 % Monocytes (%) (Auto) 7.5 % Eosinophils (%) (Auto) 1.0 % Basophils (%) (Auto) 0.4 % Neutrophils # (Auto) 12.2 TH/MM3 Lymphocytes # (Auto) 0.6 TH/MM3 Monocytes # (Auto) 1.1 TH/MM3 Eosinophils # (Auto) 0.1 TH/MM3 Basophils # (Auto) 0.1 TH/MM3 CBC Comment AUTO DIFF Differential Comment AUTO DIFF CONFIRMED Platelet Estimate NORMAL Platelet Morphology Comment CLUMPED Blood Urea Nitrogen 12 MG/DL Creatinine 0.99 MG/DL Random Glucose 106 MG/DL Calcium Level 9.0 MG/DL Sodium Level 137 MEQ/L Potassium Level 3.4 MEQ/L Chloride Level 108 MEQ/L Carbon Dioxide Level 19.3 MEQ/L Anion Gap 10 MEQ/L Estimat Glomerular Filtration Rate 76 ML/MIN Imaging Last Impressions Chest X-Ray 03/18/17 0301 Signed Impressions: Service Date/Time: Saturday, March 18, 2017 03:23 - CONCLUSION: 1. Multiple right-sided nodular density concerning for metastatic deposits. 2. Consolidation in the right middle. This may be due to some central adenopathy and regional airway compression. 3. Left lung is clear Sky Gomes MD Chest CT 03/18/17 0000 Signed Impressions: Service Date/Time: Saturday, March 18, 2017 05:18 - CONCLUSION: 1. Multiple cavitary mass lesions in the right hemithorax. Both neoplastic and infectious etiology should be considered. 2. Right hilar and subcarinal prominent lymph nodes. 3. Atelectatic changes in the right middle Sky Gomes MD Objective Remarks General: NAD., AAOx3 ENT: NO appreciable eye lid drooping Chest: CTA Cardiac: Regular Abd: +BS, soft ND/NT Ext: No edema Procedures 2D echo (03/20) - EF 50-55% - Mild mitral valve regurgitation - Mild tricuspid valve regurgitation - Estimated PA pressure 39.8mmHg - No vegetation of masses identified. A/P Problem List: (1) Cavitary lesion of lung ICD Codes: J98.4 - Other disorders of lung Status: Acute Plan: - Pt is a 66 y/o male who presented to the ED at [facility] on 03/18/17 with complaints of SOB, hemoptysis and dysphagia. - CT Chest (03/18) revealed multiple cavitary mass lesions in the right hemithorax and right hilar and subcarinal prominent lymph nodes with atelectatic changes in the right middle lobe. - Pt had recently had dental work prior to symptom onset and workup was done to r/o infectious etiology and malignancy. There was no clear aspiration event per history. - Pulmonary medicine and ID were consulted. - Blood cultures (03/18) with NGTD. - 2D echo (03/20) with no noted vegetations. - Pt was transferred to [facility] for bronchoscopy which was performed on 03/20 with no noted endobronchial lesions. - Cultures from the bronchial washings have grown out yeast sp otherwise no growth on the culture, gram stain, and acid fast stain/MB culture. - Pt was evaluated for TB and PCR was negative. - Pt was noted to be Hep c ab positive which will need to be followed up on as an outpt. - Cytology neg for malignant cells. - Pathology is negative - During this admission pt was seen by GI as well for his long standing issues with dysphagia. Pt was evaluated with a barium swallow and noted to have presbyesophagus. - Abx converted to po Levaquin/Flagyl per ID recommendations to be given for at least 4weeks and further rx decided upon at f/u with Dr Jessica Morales in 2 weeks. - Pt was recommended to have a repeat Chest CT in 2 weeks which will need to be ordered by his PCP. - With pts cultures now growing yeast, the discharge was held on 03/26 for further workup and await final cultures. - Diflucan 100mg po daily added on 03/26. - Supportive care (2) Anxiety and depression ICD Codes: F41.8 - Anxiety and depression Status: Chronic Plan: - Cont medications,stable (3) Hyperlipidemia ICD Codes: E78.5 - Hyperlipidemia Status: Chronic Plan: - Cont atorvastatin (4) Migraine ICD Codes: G43.909 - Migraine, unspecified, not intractable, without status migrainosus Status: Chronic Plan: - Stable cont Topamax (5) CAD (coronary artery disease) ICD Codes: I25.10 - CAD (coronary artery disease) Status: Chronic Plan: - Confirmed in [facility] EHR he was on Plavix and aspirin, on hold due to hemoptysis - We will resume these today (6) Hepatitis C antibody positive in blood ICD Codes: R76.8 - Other specified abnormal immunological findings in serum Status: Acute Assessment and Plan Patient examined. Assessment and plan formulated with Chelita Aponte PA-C. I agree with the above. Problem Qualifiers (1) Migraine: (2) CAD (coronary artery disease): Chelita Aponte Mar 27, 2017 08:16 Sarmad Arauz DO Mar 31, 2017 00:14
[2017-03-27 08:21] VITALS: BP 114/66; PULSE 100; RESP 20; TEMP 98.4; O2SAT 88
[2017-03-27] MEDS: PANTOPRAZOLE SOD 40 MG DELAYED RELEASE TAB PO SCH (09:28)
[2017-03-27] MEDS: FLUCONAZOLE 100 MG TAB PO SCH (09:28)
[2017-03-27] MEDS: MEGESTROL ACETATE SUSP 400 MG/10 ML CUP PO SCH (09:29)
[2017-03-27 11:34] VITALS: BP 135/92; PULSE 96; RESP 18; TEMP 94.3; O2SAT 99
[2017-03-27] MEDS: CLOPIDOGREL 75 MG TAB PO SCH (11:35)
[2017-03-27] MEDS: ASPIRIN EC 81 MG TABEC PO SCH (11:35)
[2017-03-27] MEDS: LEVOFLOXACIN 500 MG TAB PO SCH (14:47)
[2017-03-27 16:12] VITALS: BP 133/97; PULSE 92; RESP 18; TEMP 97.7; O2SAT 97
--- NOTE | 2017-03-27 18:41 | HHI.PR ---
Subjective Remarks YOWM with Bipolar disorder, multiple cavitary lesions denies sob No fever Had bronch done No mass or endobronchial lesion MTB PCR negative Bronchial cultures negative so far Bronchial bx Neg Objective Vital Signs Vital Signs Date Time Temp Pulse Resp B/P (MAP) Pulse Ox O2 Delivery O2 Flow Rate FiO2 03/27/17 16:12 97.7 92 18 133/97 (109) 97 03/27/17 11:34 94.3 96 18 135/92 (106) 99 03/27/17 09:28 Room Air 03/27/17 08:21 98.4 100 20 114/66 (82) 88 03/27/17 04:00 97.3 98 18 102/66 (78) 93 03/27/17 00:00 98.2 90 18 106/71 (83) 94 03/26/17 21:05 Room Air 03/26/17 20:00 97.6 89 18 138/76 (96) 97 I/O 03/26/17 03/26/17 03/26/17 03/27/17 03/27/17 03/27/17 07:00 15:00 23:00 07:00 15:00 23:00 Intake Total 480 ml 720 ml Balance 480 ml 720 ml Intake Oral 480 ml 720 ml # Voids 3 10 # Bowel Movements 1 2 Result Diagram: 03/26/1790003/26/17900 Objective Remarks GENERAL: MBMN WM, weak, NAD SKIN: Warm and dry. HEAD: Normocephalic. EYES: No scleral icterus. No injection or drainage. NECK: Supple, trachea midline. No JVD or lymphadenopathy. CARDIOVASCULAR: Regular rate and rhythm without murmurs, gallops, or rubs. RESPIRATORY: Breath sounds equal bilaterally. No accessory muscle use. GASTROINTESTINAL: Abdomen soft, non-tender, nondistended. MUSCULOSKELETAL: No cyanosis, or edema. BACK: Nontender without obvious deformity. No CVA tenderness. A/P Assessment and Plan Multiple cavitary lesions right lung Bipolar disorder Weight loss PLAN Cont Abx per ID Stable from pulm standpoint. Stable on RA CXR in Bunny Browne MD Mar 27, 2017 18:41
[2017-03-27 20:00] VITALS: BP 132/75; PULSE 86; RESP 18; TEMP 98.4; O2SAT 96
[2017-03-27] MEDS: traZODone HCL 50 MG TAB PO SCH (21:03)
[2017-03-27] MEDS: TOPIRAMATE 100 MG TAB PO SCH (21:03)
[2017-03-27] MEDS: ATORVASTATIN 20 MG TAB PO SCH (21:04)
[2017-03-27] MEDS: QUEtiapine FUMARATE 100 MG TAB PO SCH (21:04)
[2017-03-28] VITALS: BP 105/75; PULSE 81; RESP 17; TEMP 97.9; O2SAT 95
[2017-03-28 05:20] VITALS: BP 111/66; PULSE 99; RESP 17; TEMP 97.8; O2SAT 94
[2017-03-28] MEDS: metroNIDAZOLE 500 MG TAB PO SCH ×2 (05:49→12:46)
--- NOTE | 2017-03-28 06:47 | RADRPT ---
EXAM DATE/TIME: 03/28/2017 06:01 [place] COMPARISON: CHEST SINGLE AP, March 20, 2017, 20:25. CT THORAX W CONTRAST, March 18, 2017, 5:18. INDICATIONS : Respiratory failure. MEDICAL HISTORY : Hiatal hernia. Asthma. SURGICAL HISTORY : Tonsillectomy. Coronary artery stent. Esophageal surgery ENCOUNTER: Subsequent ACUITY: 1 week PAIN SCORE: 0/10 LOCATION: Bilateral chest FINDINGS: A single view of the chest demonstrates right basilar lung consolidation, slightly improved from Sept ember . Multiple right lung masses again noted. Minimal linear opacity left lung is stable. Small r ight effusion. Heart size normal. CONCLUSION: 1. Slight improvement in right basilar airspace disease since March 20. Multiple right lung elmo s again identified with some cavitation superiorly. Adama Velasquez MD on March 28, 2017 at 6:44 Board Certified Radiologist. This report was verified electronically.
[2017-03-28 08:14] VITALS: BP 112/64; PULSE 100; RESP 17; TEMP 97.6; O2SAT 93
[2017-03-28] MEDS: MEGESTROL ACETATE SUSP 400 MG/10 ML CUP PO SCH (09:46)
[2017-03-28] MEDS: FLUCONAZOLE 100 MG TAB PO SCH (09:47)
[2017-03-28] MEDS: PANTOPRAZOLE SOD 40 MG DELAYED RELEASE TAB PO SCH (09:47)
[2017-03-28] MEDS: ASPIRIN EC 81 MG TABEC PO SCH (09:48)
[2017-03-28] MEDS: CLOPIDOGREL 75 MG TAB PO SCH (09:48)
[2017-03-28] MEDS ORDERED: MEGE40SU PO (11:33)
[2017-03-28] MEDS ORDERED: METR-1 PO (11:33)
[2017-03-28] MEDS ORDERED: TIZA4 PO (11:33)
[2017-03-28] MEDS ORDERED: DIFL100T PO (11:33)
[2017-03-28] MEDS ORDERED: LEVA500T20 PO (11:33)
--- NOTE | 2017-03-28 11:53 | HHI.DCPOC ---
Discharge Care Plan Diagnosis: (1) Cavitary lesion of lung (2) Hepatitis C antibody positive in blood Goals to Promote Your Health * To prevent worsening of your condition and complications * To maintain your health at the optimal level Directions to Meet Your Goals Take your medications as prescribed Follow your dietary instruction Follow activity as directed Keep your appointments as scheduled Take your immunizations and boosters as scheduled If your symptoms worsen call your PCP, if no PCP go to Urgent Care Center or Emergency Room Smoking is Dangerous to Your Health. Avoid second hand smoke Call the 24-hour hour crisis hotline for domestic abuse at Lyla Nick Mar 28, 2017 11:53 Sarmad Arauz DO Mar 31, 2017 00:16
--- NOTE | 2017-03-28 11:57 | HHI.PR ---
Subjective Remarks Patient reports lower back spasms which he reports as chronic offers no other complaints at this time denies SOB, cough or congestion Objective Vitals Vital Signs Date Time Temp Pulse Resp B/P (MAP) Pulse Ox O2 Delivery O2 Flow Rate FiO2 03/28/17 08:14 97.6 100 17 112/64 (80) 93 03/28/17 07:00 98 Room Air 21 03/28/17 05:20 97.8 99 17 111/66 (81) 94 03/28/17 00:00 97.9 81 17 105/75 (85) 95 03/27/17 22:41 Room Air 03/27/17 20:00 98.4 86 18 132/75 (94) 96 03/27/17 16:12 97.7 92 18 133/97 (109) 97 Result Diagram: 03/26/17 0901 03/26/17 0901 Other Results Laboratory Tests Test 03/26/17 09:01 03/28/17 07:10 White Blood Count 14.1 TH/MM3 Red Blood Count 4.03 MIL/MM3 Hemoglobin 11.8 GM/DL Hematocrit 37.1 % Mean Corpuscular Volume 92.1 FL Mean Corpuscular Hemoglobin 29.3 PG Mean Corpuscular Hemoglobin Concent 31.8 % Red Cell Distribution Width 14.3 % Platelet Count 237 TH/MM3 Mean Platelet Volume 9.6 FL Neutrophils (%) (Auto) 87.0 % Lymphocytes (%) (Auto) 4.1 % Monocytes (%) (Auto) 7.5 % Eosinophils (%) (Auto) 1.0 % Basophils (%) (Auto) 0.4 % Neutrophils # (Auto) 12.2 TH/MM3 Lymphocytes # (Auto) 0.6 TH/MM3 Monocytes # (Auto) 1.1 TH/MM3 Eosinophils # (Auto) 0.1 TH/MM3 Basophils # (Auto) 0.1 TH/MM3 CBC Comment AUTO DIFF Differential Comment AUTO DIFF CONFIRMED Platelet Estimate NORMAL Platelet Morphology Comment CLUMPED Blood Urea Nitrogen 12 MG/DL Creatinine 0.99 MG/DL Random Glucose 106 MG/DL Calcium Level 9.0 MG/DL Sodium Level 137 MEQ/L Potassium Level 3.4 MEQ/L Chloride Level 108 MEQ/L Carbon Dioxide Level 19.3 MEQ/L Anion Gap 10 MEQ/L Estimat Glomerular Filtration Rate 76 ML/MIN Microbiology Date/Time Source Procedure Growth Status 03/18/17 15:01 Blood Peripheral Aerobic Blood Culture - Final NO GROWTH IN 5 DAYS Complete 03/18/17 15:01 Blood Peripheral Anaerobic Blood Culture - Final NO GROWTH IN 5 DAYS Complete 03/20/17 18:37 Bronchial Washings Right Lower Lobe Fungal Smear - Final NO FUNGAL ELEMENTS SEEN. Resulted 03/20/17 18:37 Bronchial Washings Right Lower Lobe Fungal Culture - Preliminary Resulted Imaging Last Impressions Chest X-Ray 03/18/17 0301 Signed Impressions: Service Date/Time: Saturday, March 18, 2017 03:23 - CONCLUSION: 1. Multiple right-sided nodular density concerning for metastatic deposits. 2. Consolidation in the right middle. This may be due to some central adenopathy and regional airway compression. 3. Left lung is clear Sky Gomes MD Chest CT 03/18/17 0000 Signed Impressions: Service Date/Time: Saturday, March 18, 2017 05:18 - CONCLUSION: 1. Multiple cavitary mass lesions in the right hemithorax. Both neoplastic and infectious etiology should be considered. 2. Right hilar and subcarinal prominent lymph nodes. 3. Atelectatic changes in the right middle Sky Gomes MD Objective Remarks General: NAD., AAOx3 ENT: NO appreciable eye lid drooping Chest: CTA Cardiac: Regular Abd: +BS, soft ND/NT Ext: No edema Procedures 2D echo (03/20) - EF 50-55% - Mild mitral valve regurgitation - Mild tricuspid valve regurgitation - Estimated PA pressure 39.8mmHg - No vegetation of masses identified. A/P Problem List: (1) Cavitary lesion of lung ICD Codes: J98.4 - Other disorders of lung Status: Acute Plan: - Pt is a 66 y/o male who presented to the ED at [facility] on 03/18/17 with complaints of SOB, hemoptysis and dysphagia. - CT Chest (03/18) revealed multiple cavitary mass lesions in the right hemithorax and right hilar and subcarinal prominent lymph nodes with atelectatic changes in the right middle lobe. - Pt had recently had dental work prior to symptom onset and workup was done to r/o infectious etiology and malignancy. There was no clear aspiration event per history. - Pulmonary medicine and ID were consulted. - Blood cultures (03/18) with NGTD. - 2D echo (03/20) with no noted vegetations. - Pt was transferred to [facility] for bronchoscopy which was performed on 03/20 with no noted endobronchial lesions. - Cultures from the bronchial washings have grown out yeast sp otherwise no growth on the culture, gram stain, and acid fast stain/MB culture. - Pt was evaluated for TB and PCR was negative. - Pt was noted to be Hep c ab positive which will need to be followed up on as an outpt. - Cytology neg for malignant cells. - Pathology is negative - During this admission pt was seen by GI as well for his long standing issues with dysphagia. Pt was evaluated with a barium swallow and noted to have presbyesophagus. - Abx converted to po Levaquin/Flagyl and Diflucan per ID recommendations to be given for at least 2 weeks and further rx decided upon at f/u with Dr Jessica Morales in 10 days. - Pt was recommended to have a repeat Chest CT in 2 weeks which will need to be ordered by his PCP. - With pts cultures now growing yeast discussed with Dr. Ascencio cleared to [place] home - Diflucan 100mg po daily added on 03/26. - Supportive care (2) Anxiety and depression ICD Codes: F41.8 - Anxiety and depression Status: Chronic Plan: - Cont medications,stable (3) Hyperlipidemia ICD Codes: E78.5 - Hyperlipidemia Status: Chronic Plan: - Cont atorvastatin (4) Migraine ICD Codes: G43.909 - Migraine, unspecified, not intractable, without status migrainosus Status: Chronic Plan: - Stable cont Topamax (5) CAD (coronary artery disease) ICD Codes: I25.10 - CAD (coronary artery disease) Status: Chronic Plan: - Confirmed in [facility] EHR he was on Plavix and aspirin, on hold due to hemoptysis - We will resume these today (6) Hepatitis C antibody positive in blood ICD Codes: R76.8 - Other specified abnormal immunological findings in serum Status: Acute Assessment and Plan Patient examined. Assessment and plan formulated with Lyla Nick PA-C. I agree with the above. Problem Qualifiers (1) Migraine: (2) CAD (coronary artery disease): Lyla Nick Mar 28, 2017 11:57 Sarmad Arauz DO Mar 31, 2017 00:15
[2017-03-28 12:02] VITALS: BP 118/74; PULSE 98; RESP 18; TEMP 97.6; O2SAT 95
[2017-03-28] MEDS: LEVOFLOXACIN 500 MG TAB PO SCH (12:46)
--- NOTE | 2017-03-28 16:33 | HHI.PR ---
Subjective Remarks YOWM with Bipolar disorder, multiple cavitary lesions denies sob No fever Had bronch done No mass or endobronchial lesion MTB PCR negative Bronchial cultures negative so far Bronchial bx Neg No new complaint Objective Vital Signs Vital Signs Date Time Temp Pulse Resp B/P (MAP) Pulse Ox O2 Delivery O2 Flow Rate FiO2 03/28/17 12:02 97.6 98 18 118/74 (89) 95 03/28/17 08:14 97.6 100 17 112/64 (80) 93 03/28/17 07:00 98 Room Air 21 03/28/17 05:20 97.8 99 17 111/66 (81) 94 03/28/17 00:00 97.9 81 17 105/75 (85) 95 03/27/17 22:41 Room Air 03/27/17 20:00 98.4 86 18 132/75 (94) 96 I/O 03/27/17 03/27/17 03/27/17 03/28/17 03/28/17 03/28/17 07:00 15:00 23:00 07:00 15:00 23:00 Intake Total 720 ml 240 ml 240 ml Balance 720 ml 240 ml 240 ml Intake Oral 720 ml 240 ml 240 ml # Voids 3 10 2 2 # Bowel Movements 2 Result Diagram: 03/26/1790003/26/17 09 Objective Remarks GENERAL: MBMN WM, weak, NAD SKIN: Warm and dry. HEAD: Normocephalic. EYES: No scleral icterus. No injection or drainage. NECK: Supple, trachea midline. No JVD or lymphadenopathy. CARDIOVASCULAR: Regular rate and rhythm without murmurs, gallops, or rubs. RESPIRATORY: Breath sounds equal bilaterally. No accessory muscle use. GASTROINTESTINAL: Abdomen soft, non-tender, nondistended. MUSCULOSKELETAL: No cyanosis, or edema. BACK: Nontender without obvious deformity. No CVA tenderness. A/P Assessment and Plan Multiple cavitary lesions right lung Bipolar disorder Weight loss PLAN Cont Abx per ID Stable from pulm standpoint. Stable on RA Will FU in office Bunny Rehman MD Mar 28, 2017 16:33
[2017-03-30 15:52] LABS: HCV RNA PCR IU/ML LESS THAN 15 IU/mL (0-14); HCV RNA PCR LOGIU/ML LESS THAN 1.18 (0-1.18)
[2017-03-31 03:48] LABS: HEPATITIS C RNA GENOTYPE NOT DETECTED (NOT DETECTD)
--- NOTE | 2017-04-02 19:25 | MR ---
cc: GOKUL ONEAL DATE 03/20/2017 PROCEDURE Bronchoscopy. PREOPERATIVE DIAGNOSIS Lung mass. POSTOPERATIVE DIAGNOSIS No endobronchial lesions seen. PROCEDURE Informed consent was obtained from the patient. The procedure and the complications including complication of anesthesia, pneumothorax requiring chest tube, bleeding complication, injuries to blood vessels, lungs, nerves, arrhythmia, hypoxia. He consented for the procedure. PROCEDURE DETAILS The patient was brought to the operating room. Under general anesthesia, LMA tube was placed by the anesthesiologist. Bronchoscopy done through LMA tube. Vocal cords normal. Trachea is normal. Main jewels is sharp. Bronchoscope advanced to the left lung. The left upper lingula, lower lobe were visualized. All subsegments were patent and then bronchoscope pulled back and advanced to the right lung. Right upper, middle and lower lobe were visualized. No endobronchial lesion was seen. Right lower lobe brushing, biopsy and washings were done. Biopsy sent for pathology. Brushings sent for cytology. Washings sent for routine culture, AFB, fungal culture, cytology and TB PCR. Postprocedure chest x-ray ordered to rule out pneumothorax. MD MATT Santana/IGLESIA /5:27 PM /7:15 PM EUGENIA
== END 2017-03-28 14:56 | disposition home health service (06) | DRG 167 ==
LOC: PHED 02:39 → PHEDA 05:36 → PH3A 08:07 → PH3B 03-19 13:49 → N05A 03-19 18:33
PROVIDERS: ADMIT Hospitalist; ATTEND Hospitalist
PROC: 0BBF8ZX Excision of Right Lower Lung Lobe, Via Natural or Artificial Opening Endoscopic, Diagnostic (ICD-10-PCS; principal; 2017-03-20 18:10)
DX: J98.4 Other disorders of lung (principal); R04.2 Hemoptysis; N18.3 Chronic kidney disease, stage 3 (moderate); F25.9 Schizoaffective disorder, unspecified; E88.09 Other disorders of plasma-protein metabolism, not elsewhere classified; R13.10 Dysphagia, unspecified; I12.9 Hypertensive chronic kidney disease with stage 1 through stage 4 chronic kidney disease, or unspecified chronic kidney disease; F31.9 Bipolar disorder, unspecified; K22.8 Other specified diseases of esophagus; B19.20 Unspecified viral hepatitis C without hepatic coma; E78.5 Hyperlipidemia, unspecified; F41.8 Other specified anxiety disorders; G43.909 Migraine, unspecified, not intractable, without status migrainosus; I25.10 Atherosclerotic heart disease of native coronary artery without angina pectoris; Z95.5 Presence of coronary angioplasty implant and graft; G89.29 Other chronic pain; M54.5 Low back pain; M62.838 Other muscle spasm; Z88.0 Allergy status to penicillin; F12.90 Cannabis use, unspecified, uncomplicated; R63.4 Abnormal weight loss
CPT/HCPCS: 71010; 71020; 71260; 74230; 76000; 80048; 80053; 80074; 80202; 81001; 82565; 84484; 85025; 85610; 85652; 85730; 86140; 87015; 87040; 87070; 87102; 87116; 87205; 87206; 87389; 87522; 87556; 87798; 87902; 88112; 88305; 88309; 88312; 93005; 93306; 94150; 94620; 94640; 94664; J0696; J1170; J1200; J1956; J2405; J3010; J3370; J3480; J7040; J7050; J7613; Q9967